=== PATIENT | female | born 1955 | race Caucasian/White ===

== ENCOUNTER 2023-09-18 16:24 | Outpatient (CLI) | payer OTHER, MEDICARE, SELFPAY ==
--- NOTE | 2023-09-18 16:45 | XR_ITS ---
WS: [id number] XR foot LT min 3V* [id number] REASON FOR EXAM: M79.672 - Pain in left foot FINDINGS: No acute fracture or focal bone lesion. No periosteal reaction. Mild narrowing of the joint space with mild subchondral sclerosis in the PIP and DIP joints of the to es. In the midfoot there is mild narrowing with moderate subchondral sclerosis in the talonavicular joint and the navicular cuneiform articulations. The remainder of the joint spaces in the midfoot are inta ct and relatively well preserved. The subtalar joint is intact with mild narrowing and subchondral sclerosis posteriorly. 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
--- NOTE | 2023-09-18 16:45 | XR_ITS ---
WS: [id number] XR ankle LT min 3V* [id number] REASON FOR EXAM: M25.572 - Pain in left ankle and joints of left foot FINDINGS: Previous internal fixation of medial and lateral malleolus with long long screws. No acute fracture identified. Mild narrowing of the medial clear space with mild subchondral sclerosis. Irregularity in the subarticular bone in the posterior tibiotalar joint which may be related to previ ous trauma. XR/XR ankle LT min 3V* [id number] IMPRESSION: Osteoarthritis of the left ankle as above.
--- NOTE | 2023-09-18 16:45 | XRR_ITS ---
PROCEDURE INFORMATION: Exam: XR Chest Exam date and time: 09/18/2023 4:49 PM Age: 67 years old Clinical indication: Cough; Additional info: R05.9 - cough, unspecified TECHNIQUE: Imaging protocol: Radiologic exam of the chest. Views: 2 views. COMPARISON: No relevant prior studies available. FINDINGS: Lungs: Small right-sided calcified granuloma. Mild interstitial prominence at the lung bases. Pleural spaces: Unremarkable. No pleural effusion. No pneumothorax. Heart/Mediastinum: Unremarkable. No cardiomegaly. Bones/joints: Unremarkable. XR/XR chest 2V* [id number] IMPRESSION: No acute cardiopulmonary disease.
== END 2023-09-18 16:25 | disposition home or self-care (01) ==
PROVIDERS: PCP Nurse Practitioner Family; Visit Provider Nurse Practitioner Family
DX: M19.072 Primary osteoarthritis, left ankle and foot (principal); R05.9 Cough, unspecified; M25.572 Pain in left ankle and joints of left foot; M79.672 Pain in left foot; E78.5 Hyperlipidemia, unspecified; M25.473 Effusion, unspecified ankle; R53.83 Other fatigue
CPT/HCPCS: 71046; 73610; 73630; 80053; 80061; 83880; 85025

== ENCOUNTER → 2023-10-10 10:17 | Outpatient (BNVA) | payer MEDICARE, SELFPAY | PROVIDERS: PCP Nurse Practitioner Family; Visit Provider Nurse Practitioner Family | DX: D72.829 Elevated white blood cell count, unspecified (principal) | CPT/HCPCS: 84443; 85025 ==

== ENCOUNTER → 2023-10-22 11:08 | Outpatient (BNVA) | payer MEDICARE, SELFPAY | PROVIDERS: PCP Nurse Practitioner Family; Visit Provider Podiatrist Foot & Ankle Surgery | DX: M79.671 Pain in right foot (principal); M79.672 Pain in left foot; G62.89 Other specified polyneuropathies | CPT/HCPCS: 99203 ==

== ENCOUNTER 2024-08-12 08:39 | Inpatient (IN) | payer MEDICARE, SELFPAY ==
[2024-08-12] VITALS (115 sets, daily range): BP systolic 120–200; BP diastolic 62–143; PULSE 81–98; RESP 12–28; TEMP 36.6–37.3; O2SAT 85–94; BMI 26.6; BMI 28.8
--- NOTE | 2024-08-12 08:41 | ECG_ITS ---
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
--- NOTE | 2024-08-12 08:49 | XRR_ITS ---
PROCEDURE INFORMATION: Exam: XR Left Hip Exam date and time: 08/12/2024 9:07 AM Age: 68 years old Clinical indication: Injury or trauma; Fall; Blunt trauma (contusions or hematomas); Left; Hip; HX of lung cancer TECHNIQUE: Imaging protocol: Radiologic exam of the left hip. Views: 2 or 3 views hip with pelvis when performed. COMPARISON: No relevant prior studies available. FINDINGS: Bones/joints: Displaced and angulated left femoral neck fracture. No additional fractures are seen. Soft tissues: Unremarkable. XR/XR hip LT 2-3V wo/w pel* [id number] IMPRESSION: Displaced and angulated left femoral neck fracture.
--- NOTE | 2024-08-12 08:50 | XRR_ITS ---
PROCEDURE INFORMATION: Exam: XR Chest Exam date and time: 08/12/2024 9:06 AM Age: 68 years old Clinical indication: Cough and dyspnea; Fall, HX of lung cancer; Additional info: Dyspnea/cough TECHNIQUE: Imaging protocol: Radiologic exam of the chest. Views: 1 view. COMPARISON: CR XR chest 2V* [id number] 09/18/2023 4:49 PM FINDINGS: Lungs: No consolidation. Pleural spaces: No sizable pleural effusion or pneumothorax. Heart/Mediastinum: No cardiomegaly. Bones/joints: Unremarkable. XR/XR chest 1V portable [id number] IMPRESSION: No acute intrathoracic findings.
--- NOTE | 2024-08-12 08:51 | W.ED.EXTPRO ---
HPI - Extremity Problem General: Chief complaint: Extremity Injury, Lower Stated complaint: Fall, Hip Pain, Poss GI Bleed Time Seen by Provider: 08/12/24 08:41 History of Present Illness: 68-year-old female who presents to the emergency room with complaints of a fall. Patient reports she has had multiple falls recently. [place] She is complaining of left hip pain this morning after falling out of bed. She denies striking her head denies loss of consciousness she did require some oxygen to arrive but she had received some fentanyl and route. EMS also reported she had coffee-ground like emesis emesis bag in the room and does appear to be concerning for upper GI bleed. Patient denies any hematemesis denies any hematochezia or melena. She is not on any anticoagulants. No chest pain some mild generalized abdominal discomfort. Associated symptoms: Deny chest pain, fever(s) or rash Related Data Home Medications ?Medication ?Instructions ?Recorded ?Confirmed albuterol sulfate 90 mcg/actuation 2 puff inhalation Q6H PRN 09/10/23 10/22/23 aerosol inhaler bupropion HCl 150 mg 24 hr tablet, mg PO 09/10/23 10/22/23 extended release hydrochlorothiazide 25 mg tablet mg PO 09/10/23 10/22/23 losartan 50 mg tablet mg PO 09/10/23 10/22/23 montelukast 10 mg tablet mg PO 09/10/23 10/22/23 tiotropium 2.5 mcg-olodaterol 2.5 inhalation 09/10/23 10/22/23 mcg/actuation mist for inhalation (Stiolto Respimat) calcium carbonate 600 mg PO DAILY 09/18/23 10/22/23 methocarbamol 500 mg tablet 750 mg PO TID 09/18/23 10/22/23 multivitamin (Daily Multi-Vitamin 1 tab PO DAILY 09/18/23 10/22/23 tablet) turmeric root extract 500 mg 1,000 mg PO DAILY 09/18/23 10/22/23 capsule Previous Rx's ?Medication ?Instructions ?Recorded mupirocin calcium 2 % topical cream 1 applic topical DAILY #30 grams 09/26/23 meloxicam 7.5 mg tablet 7.5 mg PO DAILY #30 tabs 10/10/23 gabapentin 100 mg capsule 100 mg PO BEDTIME #30 caps 11/16/23 Allergies Allergy/AdvReac Type Severity Reaction Status Date / Time Iodinated Contrast Media Allergy ALGY-Hives Verified 10/22/23 11:10 amlodipine Allergy ALGY-Redness Uncoded 10/22/23 11:10 of Skin Review of Systems Const: Denies: fever(s) or chills Card: Denies: chest pain Resp: Denies: dyspnea GI: Denies: abdominal pain : Denies: dysuria, urinary frequency or urinary urgency Musc: Reports: joint pain; Denies: neck pain or back pain Skin/Breast: Denies: rash PFSH ED PFSH: Medical History Active asthma COPD (chronic obstructive pulmonary disease) Essential hypertension Vitreous floaters of both eyes Anxiety and depression Hx of cancer of lung Surgical History Hx of cataract extraction Social History Smoking and tobacco/nicotine status: never used tobacco/nicotine Physical Exam Const: GENERAL APPEARANCE: cooperative ORIENTATION/CONSCIOUSNESS: Yes awake, Yes oriented to person, Yes oriented to place and Yes oriented to time HENMT: COMMON NORMALS: normocephalic, atraumatic and hearing grossly normal bilaterally HEAD & SCALP: normocephalic and atraumatic Resp: COMMON NORMALS: normal respiratory effort, No retractions, No use of accessory muscles and clear to auscultation bilaterally AUSCULTATION: clear to auscultation bilaterally Cardio: COMMON NORMALS: regular rate, regular rhythm and No murmurs present (Cardio) RATE: regular rate RHYTHM: regular rhythm GI: COMMON NORMALS: Soft to palpation and No hepatosplenomegaly present AUSCULTATION: Yes normoactive bowel sounds PALPATION: Yes Soft to palpation, No Tenderness to palpation present (GI), No Guarding due to palpation present (GI) and Yes No hepatosplenomegaly present Neuro: SENSORIUM/ORIENTATION: Yes oriented to person, Yes oriented to place and Yes oriented to time Skin: COMMON NORMALS: no rashes or lesions noted GENERAL SKIN EXAM: no rashes or lesions noted Course Vital Signs: Vital signs: Vital Signs Temperature 98.4 F 08/12/24 10:36 Pulse Rate 86 08/12/24 10:45 Respiratory Rate 16 08/12/24 10:57 Blood Pressure 200/100 08/12/24 10:45 Pulse Oximetry 88 L 08/12/24 10:57 Oxygen Delivery Me thod Room Air 08/12/24 10:38 Oxygen Flow Rate 2 08/12/24 08:40 MDM - Extremity (Nontraumatic) Medical Decision Making Left femoral neck fracture. Additionally patient has upper GI bleed. She is mildly hyponatremic as well. Discussed with hospitalist general surgeon and orthopedist will admit. Orders written. Admitted initially to ICU. Lab Data 08/12/24 10:38 08/12/24 10:38 Radiology Impressions Hip/Pelvis X-Ray 08/12/24 08:49 IMPRESSION: Displaced and angulated left femoral neck fracture. Chest X-Ray 08/12/24 08:50 IMPRESSION: No acute intrathoracic findings. Femur X-Ray 08/12/24 09:25 IMPRESSION: Displaced and angulated left femoral neck fracture. Knee X-Ray 08/12/24 09:25 IMPRESSION: No acute fracture or dislocation. Head CT 08/12/24 09:32 IMPRESSION: 1. No acute intracranial hemorrhage or edema. 2. Moderate bifrontal lobe atrophy and small vessel disease throughout the white matter. More than expected for a patient of this age. Laboratory Results Urine Color Yellow (Yellow) 08/12/24 09:55 Urine Appearance Clear (CLEAR) 08/12/24 09:55 Urine pH 6.0 (5-7) 08/12/24 09:55 Ur Specific Kennedy 1.012 (1.005-1.030) 08/12/24 09:55 Urine Protein Negative (Negative) 08/12/24 09:55 Urine Glucose (UA) Negative (Normal) 08/12/24 09:55 Urine Ketones Trace (Negative) 08/12/24 09:55 Urine Blood Trace (Negative) A 08/12/24 09:55 Urine Nitrate Negative (Negative) 08/12/24 09:55 Urine Bilirubin Negative (Negative) 08/12/24 09:55 Urine Urobilinogen 0.2 mg/dL (Negative) 08/12/24 09:55 Ur Leukocyte Esterase Negative (Negative) 08/12/24 09:55 Urine RBC 3-5 /hpf (0-2) 08/12/24 09:55 Urine WBC 0-5 /hpf (0-5) 08/12/24 09:55 Ur Squamous Epith Cells 0-5 /hpf (0-5) 08/12/24 09:55 Amorphous Sediment Not Reportable 08/12/24 09:55 Urine Bacteria Trace /hpf (NONE) 08/12/24 09:55 Hyaline Casts 2.46 /lpf 08/12/24 09:55 Gastric Occult Blood Positive (Negative) H 08/12/24 08:50 All radiology interpretation(s) finalized by discharge Discharge Plan Discharge Patient Disposition: Admitted As Inpatient Admit Provider: Hayden Kraus Clinical Impression: GI bleeding, Fracture of femoral neck, left, COPD (chronic obstructive pulmonary disease), Peripheral neuropathy Condition: Stable Coding Level of Care Code ED Cr[employer]acker for Michael Wilson
[2024-08-12 09:10] LABS: Gastricult Occult Blood Positive (Negative)
--- NOTE | 2024-08-12 09:25 | XRR_ITS ---
PROCEDURE INFORMATION: Exam: XR Left Knee Exam date and time: 08/12/2024 9:31 AM Age: 68 years old Clinical indication: Injury or trauma; Fall; Blunt trauma; Knee; Left; HX of lung cancer TECHNIQUE: Imaging protocol: Radiologic exam of the left knee. Views: 3 views. COMPARISON: CR XR knee LT 3V* [id number] 08/23/2023 11:14 PM FINDINGS: Bones/joints: No acute fracture or dislocation. Mild tricompartmental joint space narrowing and spurring. Soft tissues: Normal. XR/XR knee LT 3V* [id number] IMPRESSION: No acute fracture or dislocation.
--- NOTE | 2024-08-12 09:25 | XRR_ITS ---
PROCEDURE INFORMATION: Exam: XR Left Femur Exam date and time: 08/12/2024 9:26 AM Age: 68 years old Clinical indication: Injury or trauma; Fall; Blunt trauma; Thigh or upper leg; Left; HX lung cancer TECHNIQUE: Imaging protocol: Radiologic exam of the left femur. Views: 2 views. COMPARISON: CR XR hip LT 2-3V wo/w pel* [id number] 08/12/2024 9:07 AM FINDINGS: Bones/joints: Displaced and angulated left femoral neck fracture. No additional fractures are seen. Soft tissues: Unremarkable. XR/XR femur LT min 2V* [id number] IMPRESSION: Displaced and angulated left femoral neck fracture.
[2024-08-12] MEDS: fentaNYL 50 mcg/mL INJ 2mL IVP (09:26)
--- NOTE | 2024-08-12 09:32 | CT_ITS ---
WS: [id number] CT HEAD NONCONTRAST HISTORY: frequent falls TECHNIQUE: Contiguous axial imaging performed through the brain. Bone and soft tissue windows. Sagittal and coronal reformats reviewed. All CT scans at [facility] use at least one of these dose optimization techniques: automated exposure control; mA and/or kV adjustment per patient size (includes targeted exams where dose is matched to clinical indication); or iterative reconstruction. DLP: 1096.58 mGy.cm COMPARISON: None available. No acute intracranial hemorrhage, midline shift or mass effect. Moderate atrophy, most significant is a bifrontal lobe atrophy. Low-attenuation in the periventricular white matter from moderate small vessel disease. No prior infarct. Ventricles: Normal size with no hydrocephalus. No inferior displacement of the cerebellar tonsils. Paranasal sinuses: As visualized are clear. Mastoid air cells: Well pneumatized. Calvarium and scalp: Skull is intact with no soft tissue edema or swelling. Moderate vascular calcifications in the intracranial carotid arteries. CT/CT head wo con* [id number] IMPRESSION: 1. No acute intracranial hemorrhage or edema. 2. Moderate bifrontal lobe atrophy and small vessel disease throughout the whi te matter. More than expected for a patient of this age.
[2024-08-12] MEDS: pantoprazole 40 mg SDV 80 MG IVP (10:01)
[2024-08-12 10:06] LABS: Bilirubin Urine Negative (Negative); Blood Urine Trace (Negative); Glucose Urine UA Negative (Normal); Ketones Urine Trace (Negative); Leukocyte Esterase Urine Negative (Negative); Nitrate Urine Negative (Negative); Protein Urine Negative (Negative); Specific Gravity, Urine 1.012 (1.005-1.030); Urine Appearance Clear (CLEAR); Urine Color Yellow (Yellow); Urobilinogen Urine 0.2 mg/dL (Negative)
[2024-08-12 10:11] LABS: Add Urine Microscopic? YES; Bacteria Urine Trace /hpf; Hyaline Casts Urine 2.46 /lpf; Squamous Epithelial Cell Urine 0-5 /hpf (0-5); WBC Urine 0-5 /hpf (0-5)
[2024-08-12] MEDS: ondansetron 2 mg/ML SDV 2 mL 4 MG IVP (10:53)
[2024-08-12] MEDS: sodium chloride 0.9% 1,000 ML 100 ML IV ×2 (10:53→21:18)
[2024-08-12] MEDS: morphine 4 mg/mL SDV 1 mL 2 MG IVP ×4 (10:57→19:04)
[2024-08-12 10:58] LABS: Basophils % 0.1 %; Eosinophils % 0.1 %; Hematocrit 45.9 % (36-47); Lymphocytes # 1.1 10^3/uL (0.8-4.8); Lymphocytes % 7.4 %; Mean Corpuscular Hemoglobin 32.7 pg (27-33); Mean Corpuscular Volume 96.2 fl (85-98); Mean Platelet Volume 8.4 fL (7.4-10.4); Monocytes # 0.5 10^3/uL (0.2-0.9); Monocytes % 3.2 %; Neutrophils # 12.84 10^3/uL (1.8-7.7); Neutrophils % 88.6 %; Nucleated Red Blood Cells % 0 %; Platelet Count 338 10^3/cmm (157-399); Red Blood Count 4.77 10^6/uL (3.85-5.65); Red Cell Distribution Width 11.9 % (12.1-15.1); White Blood Count 14.48 10^3/uL (3.29-11.43)
--- NOTE | 2024-08-12 10:58 | ECG_ITS ---
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
[2024-08-12 11:09] LABS: Alanine Aminotransferase 21 U/L (0-33); Albumin Level 4.4 g/dL (3.5-5.2); Alkaline Phosphatase 122 U/L (35-105); Aspartate Amino Transferase 21 U/L (0-32); Blood Urea Nitrogen 7 mg/dL (8-23); Calcium 8.9 mg/dL (8.5-10.5); Carbon Dioxide 19 mmol/L (22-29); Chloride 87 mmol/L (98-107); Creatinine Clr Calc Pharmacy 82.0972; Glomerular Filtration Rate 123.4 mL/min (90-130); Glucose 109 mg/dL (65-115); Osmolality Calculated 255 mOsm/kg (285-295); Sodium 123 mmol/L (136-145); Total Bilirubin 0.3 mg/dL (0.15-1.2); Total Protein 7.4 g/dL (6.6-8.7)
[2024-08-12 11:10] LABS: Anion Gap 21.6 (5-19); Potassium 4.6 mmol/L (3.5-5.1)
[2024-08-12 11:11] LABS: Troponin(5th) Baseline < 6 ng/L (0-10)
--- NOTE | 2024-08-12 11:25 | PC.NURSE ---
Patient arrived to ICU at 1030. Patient alert and orientated. Patient did have one episode of emesis with coffee grounds, Dr. Barton notified, plans for EGD tomorrow. PRN zofran and morphine given, see MAR.
--- NOTE | 2024-08-12 11:33 | PM.CONSULT ---
Providers/Reason For Consult Consulting Physician/Specialty*: General Surgery Reason for Consult*: Upper GI bleeding Attending Physician: Hayden Kraus Primary Care Provider: NARGIS Almaguer History of Present Illness History of Present Illness Shelly Mcdonald is a 68 year old female who presents to the hospital after a mechanical fall and has a left femoral neck fracture. Unfortunately in the trip to the hospital she also had an episode of coffee-ground emesis positive for Hemoccult. Since then she has had 1 more episode of coffee-ground emesis. She denies significant abdominal pain, has history of previous GI bleeding in the past. No melanotic stools reported Review of Systems General: Reports: 10 or more systems reviewed and unremarkable except in HPI and below Medications/Allergies Home Medications ?Medication ?Instructions ?Recorded ?Confirmed ?Last Taken ?Type albuterol sulfate 90 mcg/actuation 2 puff inhalation Q6H PRN 09/10/23 10/22/23 Unknown History aerosol inhaler bupropion HCl 150 mg 24 hr tablet, mg PO 09/10/23 10/22/23 Unknown History extended release hydrochlorothiazide 25 mg tablet mg PO 09/10/23 10/22/23 Unknown History losartan 50 mg tablet mg PO 09/10/23 10/22/23 Unknown History montelukast 10 mg tablet mg PO 09/10/23 10/22/23 Unknown History tiotropium 2.5 mcg-olodaterol 2.5 inhalation 09/10/23 10/22/23 Unknown History mcg/actuation mist for inhalation (Stiolto Respimat) calcium carbonate 600 mg PO DAILY 09/18/23 10/22/23 Unknown History methocarbamol 500 mg tablet 750 mg PO TID 09/18/23 10/22/23 Unknown History multivitamin (Daily Multi-Vitamin 1 tab PO DAILY 09/18/23 10/22/23 Unknown History tablet) turmeric root extract 500 mg 1,000 mg PO DAILY 09/18/23 10/22/23 Unknown History capsule mupirocin calcium 2 % topical cream 1 applic topical DAILY #30 grams 09/26/23 10/22/23 Unknown Rx meloxicam 7.5 mg tablet 7.5 mg PO DAILY #30 tabs 10/10/23 10/22/23 Unknown Rx gabapentin 100 mg capsule 100 mg PO BEDTIME #30 caps 11/16/23 11/16/23 Unknown Rx Allergies Allergy/AdvReac Type Severity Reaction Status Date / Time Iodinated Contrast Media Allergy ALGY-Hives Verified 10/22/23 11:10 amlodipine Allergy ALGY-Redness Uncoded 10/22/23 11:10 of Skin Current Medications Generic Name Dose Route Start Last Admin Trade Name Freq PRN Reason Stop Dose Admin Sodium Chloride 1,000 mls @ 100 mls/hr 08/12/24 10:17 08/12/24 10:53 Sodium Chloride 0.9% IV 100 mls/hr .Q10H ANDREY Administration Morphine Sulfate 2 mg 08/12/24 10:17 08/12/24 10:57 Morphine 4 Mg/Ml Sdv 1 Ml IVP 2 mg Q4H PRN Administration SEVERE PAIN Ondansetron HCl 4 mg 08/12/24 10:17 08/12/24 10:53 Ondansetron 2 Mg/Ml Sdv 2 Ml IVP 4 mg Q6H PRN Administration NAUSEA AND VOMITING PFSH Acute PFSH: Medical History Active asthma COPD (chronic obstructive pulmonary disease) Essential hypertension Vitreous floaters of both eyes Anxiety and depression Hx of cancer of lung Surgical History Hx of cataract extraction Social History Smoking and tobacco/nicotine status: never used tobacco/nicotine Vitals/I&O/Wt Last Vital Signs Temp 98.4 F 08/12/24 10:36 Pulse 86 08/12/24 10:45 Resp 16 08/12/24 10:57 BP 200/100 08/12/24 10:45 Pulse Ox 88 L 08/12/24 10:57 O2 Del Method Room Air 08/12/24 10:38 O2 Flow Rate 2 08/12/24 08:40 Weight last 48 hrs Weight 195 lb 7 oz Weight 180 lb Physical Exam Narrative: Abdomen is soft nontender nondistended. Urinary Catheter Management: Huertas: Cath Placed During This Visit: yes Urinary Catheter Date of Insertion: 08/12/24 Urinary Catheter Time of Insertion: 10:00 Data 08/12/24 10:38 08/12/24 10:38 A&P Assessment and plan (1) Elevated WBC count: (2) GI bleeding: Plan I had extensive discussion with the patient regarding the findings. Her hemoglobin appears to be stable at 15.6. This most likely is of very slow upper GI bleeding, since patient is going to need orthopedic fixation of her hip and probably will receive anticoagulation after orthopedic surgery I think it will be appropriate to proceed with upper endoscopy with possible bleeding control to prevent further bleeding if the patient is anticoagulated. I discussed the risk and benefits of the procedure including the risks of bleeding, perforation, need for surgical intervention, need for additional procedures, need for transfer to higher level of care. Patient shows understanding and agrees. We will proceed tomorrow after initial resuscitation. Will recommend that the patient is on a twice a day PPI and will continue to monitor the hemoglobin level. PDMP PDMP Reviewed: Not Reviewed Coding Level of Care Code Acute Code for Chg Fwd Diagnoses Lymphocytosis D72.820 Leukocytosis type: lymphocytosis GI bleeding K92.2
[2024-08-12 12:46] LABS: Troponin 5 2HR < 6.0 ng/L (0-10); Troponin 5 2HR Delta 0 ABS# (0-10)
--- NOTE | 2024-08-12 12:53 | PM.HP ---
Providers/Chief Complaint Admitting Physician: Hayden Kraus Primary Care Provider: NARGIS Almaguer Chief Complaint: Fall, Hip Pain, Poss GI Bleed History of Present Illness Shelly Mcdonald is a 68 year old female with a history of COPD, prior lung cancer, chronic back pain, and left leg orthopedic hardware (pins and screws in the left ankle) presents with recurrent falls since moving to their current residence in August or September of last year (approximately one year ago). The patient reports up to 11 falls, often attributing them to tripping, possibly due to not lifting their feet enough and the left leg being shorter and weaker. The patient denies lightheadedness or presyncopal symptoms before falls. About a month ago, the patient sustained significant right-sided rib bruising from a fall, which remains sore. The patient also reports chronic back pain, which has worsened recently. There is a history of left leg weakness and attempts to use insoles for leg length discrepancy. The patient manages their own medications and has recently stopped meloxicam due to lack of efficacy and prior GI issues. The patient has a history of diarrhea a few months ago, leading to medication adjustments. The patient denies numbness or loss of sensation in the hands or feet but notes sometimes feeling dehydrated upon waking. The patient does not have diabetes. The patient lives alone with two dogs, has no family nearby, and ambulates independently at home, though owns but does not use a cane. The patient smokes half a pack per day, drinks beer occasionally (three to six cans about once a week or less), and reports past marijuana use. There is a family history of heart problems (father, mother, and brother). The patient is currently hospitalized after a recent fall resulting in a hip fracture, with ongoing pain. There is concern for GI bleeding (vomiting with blood detected), and the patient is awaiting endoscopy prior to planned hip surgery. The patient is alert and making their own decisions, with cousin Aaron Granda listed as a potential surrogate decision-maker if needed [phone]. The patient is open to CPR and resuscitation if required. Review of Systems Const: Denies: fever(s), chills, body aches or malaise ENMT: Denies: throat pain Card: Denies: chest pain, edema, pre-syncope or dyspnea on exertion Resp: Denies: dyspnea, productive cough, change in phlegm color or hemoptysis GI: Reports: vomiting; Denies: abdominal pain, diarrhea, constipation, hematochezia or melena : Denies: flank pain, urinary frequency or hematuria Musc: Reports: back pain (chronic) and extremity pain; Denies: joint swelling or joint redness Skin/Breast: Denies: rash or new lesions Neuro: Denies: headache(s) or confusion Medications/Allergies Home Medications ?Medication ?Instructions ?Recorded ?Confirmed ?Last Taken ?Type albuterol sulfate 90 mcg/actuation 2 puff inhalation Q6H PRN 09/10/23 10/22/23 Unknown History aerosol inhaler bupropion HCl 150 mg 24 hr tablet, mg PO 09/10/23 10/22/23 Unknown History extended release hydrochlorothiazide 25 mg tablet mg PO 09/10/23 10/22/23 Unknown History losartan 50 mg tablet mg PO 09/10/23 10/22/23 Unknown History montelukast 10 mg tablet mg PO 09/10/23 10/22/23 Unknown History tiotropium 2.5 mcg-olodaterol 2.5 inhalation 09/10/23 10/22/23 Unknown History mcg/actuation mist for inhalation (Stiolto Respimat) calcium carbonate 600 mg PO DAILY 09/18/23 10/22/23 Unknown History methocarbamol 500 mg tablet 750 mg PO TID 09/18/23 10/22/23 Unknown History multivitamin (Daily Multi-Vitamin 1 tab PO DAILY 09/18/23 10/22/23 Unknown History tablet) turmeric root extract 500 mg 1,000 mg PO DAILY 09/18/23 10/22/23 Unknown History capsule mupirocin calcium 2 % topical cream 1 applic topical DAILY #30 grams 09/26/23 10/22/23 Unknown Rx meloxicam 7.5 mg tablet 7.5 mg PO DAILY #30 tabs 10/10/23 10/22/23 Unknown Rx gabapentin 100 mg capsule 100 mg PO BEDTIME #30 caps 11/16/23 11/16/23 Unknown Rx Allergies Allergy/AdvReac Type Severity Reaction Status Date / Time Iodinated Contrast Media Allergy ALGY-Hives Verified 10/22/23 11:10 amlodipine Allergy ALGY-Redness Uncoded 10/22/23 11:10 of Skin PFSH Acute PFSH: Medical History (Updated 08/12/24 @ 14:17 by Hayden Kraus MD) Active asthma COPD (chronic obstructive pulmonary disease) Essential hypertension Vitreous floaters of both eyes Anxiety and depression Hx of cancer of lung Surgical History Hx of cataract extraction Social History Smoking and tobacco/nicotine status: never used tobacco/nicotine Vitals/I&O/Wt Last Vital Signs Temp 98.4 F 08/12/24 10:36 Pulse 86 08/12/24 10:45 Resp 16 08/12/24 10:57 BP 200/100 08/12/24 10:45 Pulse Ox 88 L 08/12/24 10:57 O2 Del Method Room Air 08/12/24 10:38 O2 Flow Rate 2 08/12/24 08:40 Weight last 48 hrs Weight 88.649 kg Weight 81.647 kg Physical Exam Narrative: Sitting up in bed. Const: COMMON NORMALS: patient oriented x3 and alert GENERAL APPEARANCE: cooperative ORIENTATION/CONSCIOUSNESS: Yes awake HENMT: COMMON NORMALS: oropharynx normal Neck/C-Spine: COMMON NORMALS: no JVD Resp: COMMON NORMALS: normal respiratory effort and clear to auscultation bilaterally AUSCULTATION: clear to auscultation bilaterally Cardio: COMMON NORMALS: no JVD, regular rhythm, S1 normal heart sound present, S2 normal heart sound present and No murmurs present (Cardio) RHYTHM: regular rhythm HEART SOUNDS: S1 normal heart sound present and S2 normal heart sound present GI: COMMON NORMALS: Normal to inspection, nondistended, normoactive bowel sounds present, Soft to palpation and non-tender PALPATION: Yes Soft to palpation Extremity: COMMON NORMALS: no joint enlargement and no pedal edema NARRATIVE EXTREMITY EXAM: Pain in left hip Neuro: COMMON NORMALS: patient oriented x3 and moves all extremities SENSORIUM/ORIENTATION: Yes alert Skin: COMMON NORMALS: no rashes or lesions noted GENERAL SKIN EXAM: no rashes or lesions noted Urinary Catheter Management: Huertas: Cath Placed During This Visit: yes Urinary Catheter Date of Insertion: 08/12/24 Urinary Catheter Time of Insertion: 10:00 Data 08/12/24 10:38 08/12/24 10:38 A&P Assessment and plan (1) Fracture of femoral neck, left: Recent fall resulted in a hip fracture (possibly proximal femur, as clarified in conversation). The patient is experiencing significant pain and is interested in surgical repair. There is ongoing pain and limited mobility. Discussed with her risk of surgical intervention including due to suspected GI bleed, as well as underlying conditions including COPD. Plan for further reassessment of blood counts, assessment with endoscopy tomorrow morning. Reviewed vitals, CBC, UA, CMP, head CT, femur x-ray, hip x-ray, knee x-ray and chest x-ray, ER provider note, discussed with ER provider. - Plan for surgical repair of hip fracture pending clearance. - Pain management with morphine IV - Monitor for complications related to immobility (e.g., DVT prophylaxis with SCD, as blood thinners are currently withheld). - Huertas catheter. (2) GI bleeding: Recent vomiting with blood detected, raising concern for GI bleeding. History of NSAID use (meloxicam) which may have contributed. Awaiting endoscopy to evaluate for source of bleeding. Plan for the morning prescription surgery. Cleared for diet for now, n.p.o. after midnight. Blood thinners withheld due to bleeding risk. SCD for DVT prophylaxis. IV PPI every 12 hours. Reviewed CBC, gastric occult. Recheck hemoglobin. - Hold blood thinners until GI bleeding is evaluated. - Plan for upper endoscopy to assess for bleeding source prior to hip surgery. (3) Hypertensive urgency: Resume losartan. IVP labetalol as needed for hypertension blood pressure over 180s systolic, over 100 diastolic. Labetalol requested if not responding. Monitor for risk of hypotension. (4) Hyponatremia: Hyponatremia, 123, known duration, possibly chronic. On HCTZ. Reports intermittent thirst and drinking a lot of water. Possibly hypovolemic hyponatremia as does not appear fluid overloaded at this time. Drinks beer up to 6/week, possible component of beer potomania. Receiving normal saline. Will recheck sodium. Hold/discontinue HCTZ. Plan COPD : History of COPD, not currently requiring home oxygen. Uses nebulizer treatments as needed during exacerbations. No recent steroid use. No current respiratory distress reported. - Continue as-needed nebulizer treatments for COPD exacerbations. Chronic back pain : Chronic back pain, reportedly worsened recently. The patient has a history of using meloxicam and previously ibuprofen/Aleve, but has discontinued these due to GI side effects and lack of efficacy. Oxycodone was prescribed for rib pain after a prior fall, with some leftover at home. - Avoid NSAIDs due to GI bleeding risk. - Continue non-NSAID pain management as needed (e.g., morphine in hospital, oxycodone at home). Recurrent falls : The patient has experienced recurrent falls (up to 11) over the past year, often attributed to tripping, left leg weakness, and leg length discrepancy. No presyncopal symptoms reported. No new numbness or loss of sensation. The patient ambulates independently at home and owns a cane but does not use it regularly. Reports some chronic back pain. Will assess x-ray thoracic lumbar spine. May benefit from more detail assessment on follow-up with primary provider, consideration of neurogenic claudication. - physical therapy evaluation for gait and balance (not explicitly stated but implied by context of falls). - Check orthostatics once able - Encourage use of assistive device (cane) as needed (discussed in transcript). - Encouraged her to set up medic alert button as she lives alone and had trouble getting to the phone She names her cousin Aaron Granda as a surrogate decision-maker. She would be willing to set up DPOA paperwork to that effect. Requesting case management consultation. PDMP PDMP Reviewed: Not Reviewed Attestations Medical Necessity Statement*: Admission over 2 midnights anticipated for assessment and management after fall, left femoral neck fracture, upper GI bleeding, hyponatremia in a lady with underlying COPD, recurrent falls, depression, bradycardia's. and High MDM includes amount and/or complexity of data reviewed/ordered [ previous or external records, resulted lab(s)/test(s), ordered lab(s)/test(s) and other healthcare professional discussion] and described risk of complication, morbidity or mortality of management as documented Diagnoses Fracture of femoral neck, left S72.002A GI bleeding K92.2 Hypertensive urgency I16.0 Hyponatremia E87.1
[2024-08-12] MEDS: pantoprazole 40 mg SDV IVP (12:58)
[2024-08-12] MEDS: losartan 50 mg Tablet 25 MG PO (14:43)
[2024-08-12] MEDS: ipratropium-albuterol 3 mL Neb INHALATION ×2 (14:43→19:35)
--- NOTE | 2024-08-12 16:04 | PC.PHAR ---
Patient states she hasn't been taking her medication for a few days or so .Patient states that her doctor said she could go off of it for little while.
--- NOTE | 2024-08-12 16:34 | ECG_ITS ---
[facility] 2024[facility]12 Pat Name: Shelly Mcdonald Department: Room: [facility] Gender: Female [employer]: : 1955 Requested By: Christiano Espana Order Number: [id number] Reading MD: CRISPIN BOONE Measurements Intervals Meridian Rate: 87 P: 151 MN: 160 QRS: 50 QRSD: 96 T: 149 QT: 378 QTc: 457 Interpretive Statements ECTOPIC ATRIAL RHYTHM LOW QRS VOLTAGE IN EXTREMITY LEADS [QRS DEFLECTION < 0.5 mV IN LIMB LEADS] ABNORMAL QRS-T ANGLE [QRS-T AXIS DIFFERENCE > 60] Compared to ECG 08/12/2024 10:58:32 Ectopic atrial rhythm now present Low QRS voltage now present Sinus rhythm no longer present Electronically Signed On 08-20-2024 22:53:57 CDT by CRISPIN BOONE [email or web address]
[2024-08-12 16:35] LABS: Sodium 126 mmol/L (136-145)
[2024-08-12 16:36] LABS: Troponin 5 6HR 7.85 ng/L (0-10); Troponin 5 6HR Delta 1.85001 ng/L (0-12)
--- NOTE | 2024-08-12 17:29 | PM.CONSULT ---
Providers/Reason For Consult Consulting Physician/Specialty*: Doni Campos DO/orthopedic surgery Reason for Consult*: Left hip displaced femoral neck fracture Requesting Physician: Dr. Alexandra?emergency department Attending Physician: Hayden Kraus Primary Care Provider: NARGIS Almaguer History of Present Illness History of Present Illness Shelly Mcdonald is a 68 year old female who presents to the emergency department after sustaining a fall sustaining an injury to her left hip. Is unable to bear weight. Brought to the emergency department found to have a displaced left hip femoral neck fracture. Per patient emergency department record, Patient reports she has had multiple falls recently. [place] She is complaining of left hip pain this morning after falling out of bed. She denies striking her head denies loss of consciousness. According to emergency department she had coffee-ground like emesis emesis and does appear to be concerning for upper GI bleed as a result general surgery consulted. She is not on any anticoagulants. No chest pain some mild generalized abdominal discomfort. Denies any pain elsewhere after the injury. She states she does feel as though she is fallen frequently which she feels is some of it is she feels her left leg is shorter than her other side. She denies any presyncopal episodes prior to the fall. Denies any significant left hip pain prior to this injury. Patient lives at home by herself. Review of Systems General: Reports: 10 or more systems reviewed and unremarkable except in HPI and below Medications/Allergies Home Medications ?Medication ?Instructions ?Recorded ?Confirmed ?Last Taken ?Type bupropion HCl 150 mg 24 hr tablet, 150 mg PO QA 09/10/23 08/12/24 Unknown History extended release losartan 50 mg tablet 50 mg PO DAILY 09/10/23 08/12/24 Unknown History calcium carbonate 600 mg PO DAILY 09/18/23 08/12/24 Unknown History multivitamin (Daily Multi-Vitamin 1 tab PO DAILY 09/18/23 08/12/24 Unknown History tablet) turmeric root extract 500 mg 1,000 mg PO DAILY 09/18/23 08/12/24 Unknown History capsule albuterol sulfate 90 mcg/actuation See Rx Instructions .Route .COMPLEX 08/12/24 08/12/24 Unknown History aerosol inhaler citalopram 20 mg tablet 20 mg PO DAILY 08/12/24 08/12/24 Unknown History cyclobenzaprine 5 mg tablet 5 mg PO BEDTIME PRN Muscle Spasm 08/12/24 08/12/24 Unknown History apixaban 2.5 mg tablet (Eliquis) 2.5 mg PO BID 21 days #42 tabs 08/15/24 Unknown Rx hydrocodone 5 mg-acetaminophen 300 1 tab PO Q8H PRN pain #10 tabs 08/15/24 Unknown Rx mg tablet hydrocodone 5 mg-acetaminophen 325 1 tab PO Q6H PRN pain 5 days #20 08/15/24 Unknown Rx mg tablet tabs polyethylene glycol 3350 17 gram 17 g PO DAILY PRN constipation #30 08/15/24 Unknown Rx oral powder packet (Miralax) ea Allergies Allergy/AdvReac Type Severity Reaction Status Date / Time Iodinated Contrast Media Allergy ALGY-Hives Verified 10/22/23 11:10 amlodipine Allergy ALGY-Redness Uncoded 10/22/23 11:10 of Skin Current Medications Generic Name Dose Route Start Last Admin Trade Name Freq PRN Reason Stop Dose Admin Albuterol/Ipratropium 3 ml 08/12/24 14:00 08/12/24 14:43 Ipratropium-Albuterol 3 Ml Neb INHALATION 3 ml Q6H.RESP ANDREY Administration Sodium Chloride 1,000 mls @ 100 mls/hr 08/12/24 10:17 08/12/24 10:53 Sodium Chloride 0.9% IV 100 mls/hr .Q10H ANDREY Administration Losartan Potassium 25 mg 08/12/24 14:25 08/12/24 14:43 Losartan 50 Mg Tablet PO 25 mg DAILY ANDREY Administration Morphine Sulfate 2 mg 08/12/24 10:17 08/12/24 14:58 Morphine 4 Mg/Ml Sdv 1 Ml IVP 2 mg Q4H PRN Administration SEVERE PAIN Ondansetron HCl 4 mg 08/12/24 10:17 08/12/24 10:53 Ondansetron 2 Mg/Ml Sdv 2 Ml IVP 4 mg Q6H PRN Administration NAUSEA AND VOMITING Pantoprazole Sodium 40 mg 08/12/24 13:00 08/12/24 12:58 Pantoprazole 40 Mg Sdv IVP 40 mg Q12H ANDREY Administration PFSH Acute PFSH: Medical History (Updated 08/16/24 @ 00:00 by FLAVIO Wright) Active asthma COPD (chronic obstructive pulmonary disease) Essential hypertension Vitreous floaters of both eyes Anxiety and depression Hx of cancer of lung Surgical History Hx of cataract extraction Social History Smoking and tobacco/nicotine status: never used tobacco/nicotine Vitals/I&O/Wt Last Vital Signs Temp 98.4 F 08/12/24 10:36 Pulse 86 08/12/24 16:20 Resp 18 08/12/24 16:20 BP 128/65 08/12/24 16:20 Pulse Ox 90 08/12/24 16:20 O2 Del Method Nasal Cannula 08/12/24 14:43 O2 Flow Rate 2 08/12/24 14:43 08/12/24 08/12/24 08/12/24 06:59 14:59 22:59 Output Total 1500 / 1500 Balance -1500 / -1500 Weight last 48 hrs Weight 195 lb 7 oz Weight 180 lb Physical Exam Narrative: Patient is able to to follow commands and perform a standard?examination.?? Examination left lower extremity: Examination of the left lower extremity demonstrates patient has tenderness palpation of the left hip?as well as the left lower extremity is shortened and externally rotated pt has positive logroll on?examination unable to perform Stinchfield's secondary to pain and discomfort.? Patient is able to wiggle toes plantarflex and dorsiflex ankle sensations intact to light touch distally.? Distal pulses are palpable left lower extremity is warm and well-perfused.? Mild swelling noted about the left?hip.?? Secondary survey?examination unremarkable For any acute pathology to the bilateral upper extremities or contralateral lower extremity.? pt? has no tenderness to palpation to the bilateral upper extremities joints and no noticeable deformities.? ?gross motor and sensory is intact to the bilateral upper extremities.? Contralateral lower extremity has tenderness to the?hip?knee or ankle with no appreciable deformities and is able to plantarflex and dorsiflex ankle sensations intact to light touch distally as well as wiggle toes.? Distal pulses palpable.? Negative pelvic compression test, no tenderness palpation of the spine. Urinary Catheter Management: Huertas: Cath Placed During This Visit: yes Urinary Catheter Date of Insertion: 08/12/24 Urinary Catheter Time of Insertion: 10:00 Data 08/15/24 06:41 08/15/24 06:41 Other Labs: AM labs 08/12/2024?WBC 14.48 hemoglobin 14.60 ,sodium 126, creatinine 0.5 Xray Ortho: Radiologist's impression: Ordering Provider/Ordering MD: Christiano Alexandra DO Date of Service: 08/12/24 Procedure(s): XR hip LT 2-3V wo/w pel* [id number] Accession Number(s): [id number] Report Number: [id number] PROCEDURE INFORMATION: Exam: XR Left Hip Exam date and time: 08/12/2024 9:07 AM Age: 68 years old Clinical indication: Injury or trauma; Fall; Blunt trauma (contusions or hematomas); Left; Hip; HX of lung cancer TECHNIQUE: Imaging protocol: Radiologic exam of the left hip. Views: 2 or 3 views hip with pelvis when performed. COMPARISON: No relevant prior studies available. FINDINGS: Bones/joints: Displaced and angulated left femoral neck fracture. No additional fractures are seen. Soft tissues: Unremarkable. XR/XR hip LT 2-3V wo/w pel* [id number] IMPRESSION: Displaced and angulated left femoral neck fracture. Ordering Provider/Ordering MD: Christiano Alexandra DO Date of Service: 08/12/24 Procedure(s): XR femur LT min 2V* [id number] Accession Number(s): [id number] Report Number: [id number] PROCEDURE INFORMATION: Exam: XR Left Femur Exam date and time: 08/12/2024 9:26 AM Age: 68 years old Clinical indication: Injury or trauma; Fall; Blunt trauma; Thigh or upper leg; Left; HX lung cancer TECHNIQUE: Imaging protocol: Radiologic exam of the left femur. Views: 2 views. COMPARISON: CR XR hip LT 2-3V wo/w pel* [id number] 08/12/2024 9:07 AM FINDINGS: Bones/joints: Displaced and angulated left femoral neck fracture. No additional fractures are seen. Soft tissues: Unremarkable. XR/XR femur LT min 2V* [id number] IMPRESSION: Displaced and angulated left femoral neck fracture. Ordering Provider/Ordering MD: Christiano Alexandra DO Date of Service: 08/12/24 Procedure(s): XR knee LT 3V* [id number] Accession Number(s): [id number] Report Number: [id number] PROCEDURE INFORMATION: Exam: XR Left Knee Exam date and time: 08/12/2024 9:31 AM Age: 68 years old Clinical indication: Injury or trauma; Fall; Blunt trauma; Knee; Left; HX of lung cancer TECHNIQUE: Imaging protocol: Radiologic exam of the left knee. Views: 3 views. COMPARISON: CR XR knee LT 3V* [id number] 08/23/2023 11:14 PM FINDINGS: Bones/joints: No acute fracture or dislocation. Mild tricompartmental joint space narrowing and spurring. Soft tissues: Normal. XR/XR knee LT 3V* [id number] IMPRESSION: No acute fracture or dislocation. A&P Assessment and plan (1) Fracture of femoral neck, left: Plan Orthopedics consulted Hospitalist admitted patient is primary Imaging reviewed?displaced left?hip?femoral neck fracture Labs reviewed Pain control Nonweightbearing left lower extremity Patient has findings concerning for possible upper GI bleed on presentation General Surgery consulted planning on EGD tomorrow Plan?to for surgery for a left?hip?hemiarthroplasty suspect this will be on , 08/14/2024 this patient will still need workup for possible upper GI bleed tomorrow MDM: Patient 68-year-old female who sustained a ground-level fall and has a displaced left?hip?femoral neck fracture.? Patient this point in time states she has had multiple falls here recently. She also had concern for coffee ground emesis on initial presentation General Surgery consulted and planning on upper GI bleed workup tomorrow with possible EGD. Given the displaced fracture recommendation at this point in time would be for a left hip hemiarthroplasty versus total hip arthroplasty which we detailed out her treatment options I do feel as though surgical intervention in the way of some form or replacement would be best suited for this patient especially given this would help with pain control as well as earlier mobilization. Her bone quality looks good for possible press-fit fixation. We talked about her options here moving forward patient has had numerous falls which are of unknown origin she thinks some of this is just due to feeling like her left side feels shorter. Denies any significant left hip pain prior. This point in time I worry given her falls as well as she does appear older than stated age I feel as though a hip hemiarthroplasty would provide the most stability as I worry with these falls a total hip replacement will demand more adherence and close restrictions. At this point in time we talked about this in detail feel the best step for her would be a left hip hemiarthroplasty. We talked about her treatment options as far as nonoperative versus operative intervention.? We talked about the risks benefits complication alternatives with surgery.? Risk of surgery include but are not limited to make it better make it worse injury to nerves vessels or tendons blood clot, heart attack, stroke, on the table, infection,?hip?instability, periprosthetic fracture.? Understanding risk of surgery patient understands and agrees with current?plan.? All questions have been answered at this time.? Through shared decision-making elects to proceed with surgical intervention for a left?hip?hemiarthroplasty.? Plan?will be for a left?hip?hemiarthroplasty?once patient is optimized by internal medicine and cleared by general surgery. All questions answered at this time. PDMP PDMP Reviewed: Not Reviewed Coding Level of Care Code Acute Code for Chg Fwd Diagnoses Fracture of femoral neck, left S72.002A
[2024-08-12] MEDS: morphine 4 mg/mL SDV 1 mL IVP (22:02)
[2024-08-13] VITALS (56 sets, daily range): BP systolic 99–144; BP diastolic 55–93; PULSE 68–99; RESP 9–24; TEMP 35.8–37.2; O2SAT 81–96
[2024-08-13] MEDS: morphine 4 mg/mL SDV 1 mL IVP ×8 (00:55→22:33)
[2024-08-13] MEDS: pantoprazole 40 mg SDV IVP ×2 (00:56→12:23)
[2024-08-13 03:28] LABS: Basophils % 0.2 %; Eosinophils % 0.1 %; Hematocrit 42.1 % (36-47); Lymphocytes # 1.2 10^3/uL (0.8-4.8); Lymphocytes % 11.3 %; Mean Corpuscular Hemoglobin 32.1 pg (27-33); Mean Corpuscular Volume 97.2 fl (85-98); Mean Platelet Volume 8.3 fL (7.4-10.4); Monocytes # 0.9 10^3/uL (0.2-0.9); Monocytes % 8.2 %; Neutrophils # 8.53 10^3/uL (1.8-7.7); Neutrophils % 79.8 %; Nucleated Red Blood Cells % 0 %; Platelet Count 305 10^3/cmm (157-399); Red Blood Count 4.33 10^6/uL (3.85-5.65); Red Cell Distribution Width 12.2 % (12.1-15.1); White Blood Count 10.69 10^3/uL (3.29-11.43)
[2024-08-13 03:53] LABS: Alanine Aminotransferase 16 U/L (0-33); Albumin Level 3.6 g/dL (3.5-5.2); Alkaline Phosphatase 107 U/L (35-105); Anion Gap 14.5 (5-19); Aspartate Amino Transferase 13 U/L (0-32); Blood Urea Nitrogen 10 mg/dL (8-23); Calcium 8.7 mg/dL (8.5-10.5); Carbon Dioxide 24 mmol/L (22-29); Chloride 98 mmol/L (98-107); Creatinine Clr Calc Pharmacy 82.0972; Globulin 2.9 g/dL (1.3-4.6); Glomerular Filtration Rate 83.7 mL/min (90-130); Glucose 102 mg/dL (65-115); Osmolality Calculated 273 mOsm/kg (285-295); Potassium 4.5 mmol/L (3.5-5.1); Sodium 132 mmol/L (136-145); Total Bilirubin 0.6 mg/dL (0.15-1.2); Total Protein 6.5 g/dL (6.6-8.7)
[2024-08-13] MEDS: ketorolac 30 mg/mL INJ 15 MG IVP (04:27)
--- NOTE | 2024-08-13 05:49 | W.PM.OPSUD ---
Surgery/Procedure H&P Update DATE OF PROCEDURE: August 13, 2024 DATE H&P PERFORMED: 08/12/24 H&P UPDATE INFORMATION: I have reviewed H&P completed within last 30 days, I have examined patient prior to procedure, No changes to prior documentation, H&P is in [facility] EMR on date indicated and Risks and benefits of the procedure reviewed PLANNED PROCEDURE: Operation Date: 08/13/24 07:15 Proposed Procedures p EGD possible bleeding control(Not Applicable) - Aron Hong MD
--- NOTE | 2024-08-13 07:46 | PM.MISC ---
Miscellaneous Note Purpose of Documentation: Update on patient care Note: EGD done, no evidence of active upper GI bleeding. EGD was actually normal. Some biopsies of the antrum were taken. Patient can continue on once a day PPI for next 4 weeks I will see her in the clinic in 2 weeks. General surgery will sign off at this time.
--- NOTE | 2024-08-13 07:48 | ANES.PREANE2 ---
Pre-Anesthetic Assessment Height/Weight: Height 1.75 m Weight 88.541 kg Temp Pulse Resp BP Pulse Ox O2 Del Method O2 Flow Rate 97.6 F 78 18 131/74 94 Nasal Cannula 4 08/13/24 07:35 08/13/24 07:35 08/13/24 07:35 08/13/24 07:35 08/13/24 07:35 08/13/24 07:35 08/13/24 07:35 Preop Diagnosis: GI bleed Operation Date: 08/13/24 07:15 Proposed Procedures p EGD possible bleeding control(Not Applicable) - Aron Hong MD Was Beta Yaya taken within 24 hours: Yes Was Clonidine taken within 24 hours: N/A Social Tobacco Marijuana Exam alert, oriented x 3, clear to auscultation bilaterally and regular rate & rhythm Airway Submandibular: within normal limits Cervical ROM: within normal limits Mallampati: Class II Dentition: false History/ROS No significant history except as noted and No significant complaints Pulmonary Asthma, Chronic Obstructive Pulmonary Disease and Shortness of Breath CV/HEM Hypertension None reported Hepatic None reported GI None reported Metabolic None reported Musc/skel Osteoarthritis/DJD Neuropsych Anxiety and Depression Anesthetic Plan ASA status: 3 Anesthesia: Anesthesia Evaluation and MAC Risk of > 500 ml blood loss (7ml/kg in children): No Medications/Allergies Home Medications ?Medication ?Instructions ?Recorded ?Confirmed ?Last Taken ?Type bupropion HCl 150 mg 24 hr tablet, 150 mg PO QAM 09/10/23 08/12/24 Unknown History extended release losartan 50 mg tablet 50 mg PO DAILY 09/10/23 08/12/24 Unknown History calcium carbonate 600 mg PO DAILY 09/18/23 08/12/24 Unknown History multivitamin (Daily Multi-Vitamin 1 tab PO DAILY 09/18/23 08/12/24 Unknown History tablet) turmeric root extract 500 mg 1,000 mg PO DAILY 09/18/23 08/12/24 Unknown History capsule albuterol sulfate 90 mcg/actuation See Rx Instructions .Route .COMPLEX 08/12/24 08/12/24 Unknown History aerosol inhaler citalopram 20 mg tablet 20 mg PO DAILY 08/12/24 08/12/24 Unknown History cyclobenzaprine 5 mg tablet 5 mg PO BEDTIME PRN Muscle Spasm 08/12/24 08/12/24 Unknown History Allergies Allergy/AdvReac Type Severity Reaction Status Date / Time Iodinated Contrast Media Allergy ALGY-Hives Verified 10/22/23 11:10 amlodipine Allergy ALGY-Redness Uncoded 10/22/23 11:10 of Skin Current Medications Generic Name Dose Route Start Last Admin Trade Name Freq PRN Reason Stop Dose Admin Albuterol/Ipratropium 3 ml 08/12/24 14:00 08/13/24 03:09 Ipratropium-Albuterol 3 Ml Neb INHALATION Not Given Q6H.RESP ANDREY Sodium Chloride 1,000 mls @ 100 mls/hr 08/12/24 10:17 08/13/24 07:27 Sodium Chloride 0.9% IV Infused .Q10H ANDREY Infusion Losartan Potassium 25 mg 08/12/24 14:25 08/12/24 14:43 Losartan 50 Mg Tablet PO 25 mg DAILY ANDREY Administration Morphine Sulfate 4 mg 08/12/24 21:46 08/13/24 04:27 Morphine 4 Mg/Ml Sdv 1 Ml IVP 4 mg Q3H PRN Administration SEVERE PAIN Ondansetron HCl 4 mg 08/12/24 10:17 08/12/24 10:53 Ondansetron 2 Mg/Ml Sdv 2 Ml IVP 4 mg Q6H PRN Administration NAUSEA AND VOMITING Pantoprazole Sodium 40 mg 08/12/24 13:00 08/13/24 00:56 Pantoprazole 40 Mg Sdv IVP 40 mg Q12H ANDREY Administration PFSH Anesthesia Medical History (Updated 08/12/24 @ 14:17 by Hayden Kraus MD) Active asthma COPD (chronic obstructive pulmonary disease) Essential hypertension Vitreous floaters of both eyes Anxiety and depression Hx of cancer of lung Surgical History Hx of cataract extraction Social History Smoking and tobacco/nicotine status: never used tobacco/nicotine Data Anesthesia 08/13/24 03:15 08/13/24 03:15 Short CBC 08/12/24 08/12/24 08/13/24 Range/Units 10:38 15: 03:15 WBC 14.48 H 10.69 (3.29-11.43) 10^3/uL Hgb 15.60 14.60 13.90 (11.27-16.99) g/dL Hct 45.9 42.1 (36-47) % MCV 96.2 97.2 (85-98) fl Plt Count 338 305 (157-399) 10^3/cmm Neut % (Auto) 88.6 79.8 % Neut # (Auto) 12.84 H 8.53 H (1.8-7.7) 10^3/uL BMP 08/12/24 08/12/24 08/13/24 10:38 15:25 03:15 Sodium 123 L 126 L 132 L Potassium 4.6 4.5 Chloride 87 L 98 Carbon Dioxide 19 L 24 BUN 7 L 10 Creatinine 0.5 0.7 Glucose 109 102 Calcium 8.9 8.7 Cardiac Enzymes 08/12/24 08/12/24 08/12/24 Range/Units 10:38 12:08 16:11 Troponin T Baseline < 6 (0-10) ng/L Troponin T 120 Minute < 6.0 (0-10) ng/L Delta Troponin T 0 (0-10) ABS# Troponin T Hi Sens 6Hr 7.85 (0-10) ng/L Troponin T Hi Sens 6Hr Delta 1.30259 (0-12) ng/L Liver Function 08/12/24 08/13/24 Range/Units 10:38 03:15 Total Bilirubin 0.3 0.6 (0.15-1.2) mg/dL AST 21 13 (0-32) U/L ALT 21 16 (0-33) U/L Alkaline Phosphatase 122 H 107 H (35-105) U/L Albumin 4.4 3.6 (3.5-5.2) g/dL Urine 08/12/24 Range/Units 09:55 Urine Color Yellow (Yellow) Urine Appearance Clear (CLEAR) Urine pH 6.0 (5-7) Ur Specific [place] 1.012 (1.005-1.030) Urine Protein Negative (Negative) Urine Glucose (UA) Negative (Normal) Urine Ketones Trace (Negative) Urine Nitrate Negative (Negative) Urine Bilirubin Negative (Negative) Ur Leukocyte Esterase Negative (Negative) Urine RBC 3-5 (0-2) /hpf Urine WBC 0-5 (0-5) /hpf Blood Bank 08/12/24 10:38 Blood Type A Positive Rho(D) Type Rh positive Antibody Screen Negative
[2024-08-13] MEDS: sodium chloride 0.9% 1,000 ML 100 ML IV ×2 (07:59→15:29)
[2024-08-13] MEDS: losartan 50 mg Tablet 25 MG PO (08:01)
[2024-08-13] MEDS: nicotine 21 mg Patch 1 PATCH TRANSDERMA (08:27)
[2024-08-13] MEDS: ipratropium-albuterol 3 mL Neb INHALATION ×3 (08:42→20:37)
--- NOTE | 2024-08-13 09:26 | PC.NURSE ---
This nurse took report from SHANNAN Chaves in ICU at 924am.
--- NOTE | 2024-08-13 09:38 | PC.NURSE ---
Anastacio called report to [facility], patient taken upstairs at approx 0910.
--- NOTE | 2024-08-13 10:47 | P.PN_ITS ---
Vitals/I&O/Wt Last Vital Signs Temp 96.4 F L 08/13/24 08:00 Pulse 73 08/13/24 08:50 Resp 16 08/13/24 08:42 BP 144/93 08/13/24 08:01 Pulse Ox 93 08/13/24 08:42 O2 Del Method Nasal Cannula 08/13/24 08:42 O2 Flow Rate 3 08/13/24 10:06 08/12/24 08/13/24 08/13/24 22:59 06:59 14:59 Intake Total 1120 / 1120 1000 / 1000 Output Total 350 / 1850 1500 / 3350 Balance 770 / -730 -1500 / -2230 1000 / 1000 Weight last 48 hrs Weight 88.541 kg Weight 88.649 kg Weight 81.647 kg Physical Exam 2 Narrative: Sitting up in bed. Const: COMMON NORMALS: patient oriented x3 and alert GENERAL APPEARANCE: c ooperative ORIENTATION/CONSCIOUSNESS: Yes awake HENMT: COMMON NORMALS: oropharynx normal Neck/C-Spine: COMMON NORMALS: no JVD Resp: COMMON NORMALS: normal respiratory effort and clear to auscultation bilaterally AUSCULTATION: clear to auscultation bilaterally Cardio: COMMON NORMALS: no JVD, regular rhythm, S1 normal heart sound present, S2 normal heart sound present and No murmurs present (Cardio) RHYTHM: regular rhythm HEART SOUNDS: S1 normal heart sound present and S2 normal heart sound present GI: COMMON NORMALS: Normal to inspection, nondistended, normoactive bowel sounds present, Soft to palpation and non-tender PALPATION: Yes Soft to palpation Extremity: COMMON NORMALS: no joint enlargement and no pedal edema N ARRATIVE EXTREMITY EXAM: Pain in left hip Neuro: COMMON NORMALS: patient oriented x3 and moves all extremities S ENSORIUM/ORIENTATION: Yes alert Skin: COMMON NORMALS: no rashes or lesions noted GENERAL SKIN EXAM: no rashes or lesions noted Urinary Catheter Management: Huertas: Cath Placed During This Visit: yes Reason for Continuing Indwelling Catheter: Accurate Measurement of Urinary Output in Critically Ill Patients Urinary Catheter Date of Insertion: 08/12/24 Urinary Catheter Time of Insertion: 10:00 Data 08/13/24 03:15 08/13/24 03:15 A&P Assessment and plan (1) Fracture of femoral neck, left: Reviewed vitals, CBC, so far maintaining hemoglobin with mild decrease down to 13.9. Underwent EGD today which was unremarkable. Discussed with general surgeon and orthopedic surgeon. Reviewed surgery notes, procedure note. Plans to proceed with orthopedic surgery prescription with patient, plan for tomorrow morning. N.p.o. after midnight. Recent fall resulted in a hip fracture (possibly proximal femur, as clarified in conversation). The patient is experiencing significant pain and is interested in surgical repair. There is ongoing pain and limited mobility. Discussed with her risk of surgical intervention including due to suspected GI bleed, as well as underlying conditions including COPD. Plan for further reassessment of blood counts, assessment with endoscopy tomorrow morning. - Pain management with morphine IV - Monitor for complications related to immobility (e.g., DVT prophylaxis with SCD, as blood thinners are currently withheld). - Huertas catheter. (2) GI bleeding: Mild decrease in hemoglobin down to 13.9. No further vomiting. Underwent EGD, which was unremarkable. Reassess blood counts. Recent vomiting with blood detected, raising concern for GI bleeding on admission. History of NSAID use (meloxicam) which may have contributed. Cleared for diet for now, n.p.o. after midnight. Blood thinners withheld due to bleeding risk. SCD for DVT prophylaxis. For now continue IV PPI every 12 hours. Recheck hemoglobin. - Hold blood thinners until GI bleeding is evaluated. - Plan for upper endoscopy to assess for bleeding source prior to hip surgery. (3) Hypertensive urgency: Reviewed blood pressures, improved. Continue losartan. IVP labetalol as needed for hypertension blood pressure over 180s systolic, over 100 diastolic. Labetalol requested if not responding. Monitor for risk of hypotension. (4) Hyponatremia: Hyponatremia, improving, up to 132, hold further IV fluid. Known duration, possibly chronic. Hold and DC HCTZ. Reports intermittent thirst and drinking a lot of water. Possibly hypovolemic hyponatremia as does not appear fluid overloaded at this time. Drinks beer up to 6/week, possible component of beer potomania. Receiving normal saline. Will recheck sodium. Hold/discontinue HCTZ. Plan COPD : With mild exacerbation with cough, mild wheezing. Continue breathing treatments, scheduled and as needed. Add inhaled budesonide. Add Mucinex, flutter valve. Discussed with her. History of COPD, not currently requiring home oxygen. Uses nebulizer treatments as needed during exacerbations. No recent steroid use. No current respiratory distress reported. - Continue as-needed nebulizer treatments for COPD exacerbations. Chronic back pain : Chronic back pain, reportedly worsened recently. The patient has a history of using meloxicam and previously ibuprofen/Aleve, but has discontinued these due to GI side effects and lack of efficacy. Oxycodone was prescribed for rib pain after a prior fall, with some leftover at home. - Avoid NSAIDs due to GI bleeding risk. - Continue non-NSAID pain management as needed (e.g., morphine in hospital, oxycodone at home). Recurrent falls : The patient has experienced recurrent falls (up to 11) over the past year, often attributed to tripping, left leg weakness, and leg length discrepancy. No presyncopal symptoms reported. No new numbness or loss of sensation. The patient ambulates independently at home and owns a cane but does not use it regularly. Reports some chronic back pain. Will assess x-ray thoracic lumbar spine. May benefit from more detail assessment on follow-up with primary provider, consideration of neurogenic claudication. - physical therapy evaluation for gait and balance (not explicitly stated but implied by context of falls). - Check orthostatics once able - Encourage use of assistive device (cane) as needed (discussed in transcript). - Encouraged her to set up medic alert button as she lives alone and had trouble getting to the phone She names her cousin Aaron Granda as a surrogate decision-maker. She would be willing to set up DPOA paperwork to that effect. Requesting case management consultation. PDMP PDMP Reviewed: Not Reviewed Attestations 2 Medical Necessity Statement*: Continue admission for assessment and management of hip fracture, reassessment of blood counts after possible GI bleeding, treat COPD exacerbation, additional comorbidities as above. and High MDM includes amount and/or complexity of data reviewed/ordered [ previous or external records, resulted lab(s)/test(s), ordered lab(s)/test(s) and other healthcare professional discussion] and described risk of complication, morbidity or mortality of management as documented Diagnoses Fracture of femoral neck, left S72.002A GI bleeding K92.2 Hypertensive urgency I16.0 Hyponatremia E87.1
--- NOTE | 2024-08-13 11:39 | PC.NURSE ---
Upon pt transferring up to our floor from ICU, wallet with $66 in [place], cigarettes, [employer] agent and keys were locked up in [facility]. Pt requested to leave her watch on her wrist.
--- NOTE | 2024-08-13 13:09 | P.PN_ITS ---
Subjective 2 Subjective: Patient seen and examined today. She underwent EGD and at this point in time is cleared with no with no findings for upper GI bleed at this point in time she is cleared from general surgery standpoint to proceed with surgical intervention as well as internal medicine. Will plan on adding her onto the surgery schedule tomorrow morning to have this fixed with a left hip hemiarthroplasty she understands and agrees with current plan. Questions answered. Vitals/I&O/Wt Last Vital Signs Temp 99 F 08/13/24 11:51 Pulse 73 08/13/24 11:51 Resp 18 08/13/24 12:25 BP 128/70 08/13/24 11:51 Pulse Ox 96 08/13/24 12:25 O2 Del Method Nasal Cannula 08/13/24 11:51 O2 Flow Rate 3 08/13/24 10:06 08/12/24 08/13/24 08/13/24 22:59 06:59 14:59 Intake Total 1120 / 1120 1000 / 1000 Output Total 350 / 1850 1500 / 3350 Balance 770 / -730 -1500 / -2230 1000 / 1000 Weight last 48 hrs Weight 195 lb 3.2 oz Weight 195 lb 7 oz Weight 180 lb Physical Exam 2 Narrative: Patient is able to to follow commands and perform a standard?examination.?? Examination left lower extremity: Examination of the left lower extremity demonstrates patient has tenderness palpation of the left hip?as well as the left lower extremity is shortened and externally rotated pt has positive logroll on?examination unable to perform Stinchfield's secondary to pain and discomfort.? Patient is able to wiggle toes plantarflex and dorsiflex ankle sensations intact to light touch distally.? Distal pulses are palpable left lower extremity is warm and well-perfused.? Mild swelling noted about the left?hip.?? Urinary Catheter Management: Huertas: Cath Placed During This Visit: yes Reason for Continuing Indwelling Catheter: Accurate Measurement of Urinary Output in Critically Ill Patients Urinary Catheter Date of Insertion: 08/12/24 Urinary Catheter Time of Insertion: 10:00 Data 08/15/24 06:41 08/15/24 06:41 Other Labs: AM labs 08/13/2024 WBC 10.69 hemoglobin 13.90 creatinine 0.7 A&P Assessment and plan (1) Fracture of femoral neck, left: Plan Orthopedics consulted Hospitalist admitted patient is primary Imaging reviewed?displaced left?hip?femoral neck fracture Labs reviewed Pain control Nonweightbearing left lower extremity Upper GI scope today and cleared by general surgery?no concern for upper GI bleed Plan?to for surgery for a left?hip?hemiarthroplasty tomorrow Patient at this point in time is cleared from her upper GI bleed with general surgery and optimized to proceed with surgical intervention. We talked about trying to do this today unfortunately given the OR schedule this would be late into the evening and talked about this with the patient this point time we will plan on having her first case tomorrow. Patient understands agrees with current plan. All questions answered. Will add patient on first case tomorrow for left hip hemiarthroplasty all questions answered. PDMP PDMP Reviewed: Not Reviewed Attestations 2 Medical Necessity Statement*: Ongoing care left hip displaced femoral neck fracture requiring left hip hemiarthroplasty planning on surgery tomorrow, patient had workup for upper GI bleed today Coding Level of Care Code Acute Code for Chg Fwd Diagnoses Fracture of femoral neck, left S72.002A
[2024-08-13] MEDS: guaiFENesin 600 mg Tablet 1200 MG PO (17:08)
[2024-08-14] VITALS (23 sets, daily range): BP systolic 92–147; BP diastolic 49–98; PULSE 67–90; RESP 15–20; TEMP 36.1–37.2; O2SAT 84–96
[2024-08-14] MEDS: morphine 4 mg/mL SDV 1 mL IVP ×3 (01:42→21:08)
[2024-08-14] MEDS: pantoprazole 40 mg SDV IVP ×2 (01:42→12:09)
[2024-08-14] MEDS: ipratropium-albuterol 3 mL Neb INHALATION ×3 (03:10→19:36)
[2024-08-14 05:13] LABS: Basophils # 0.1 10^3/uL (0.0-0.1); Basophils % 0.5 %; Eosinophils # 0.3 10^3/uL (0.0-0.8); Eosinophils % 2.5 %; Hematocrit 41.6 % (36-47); Lymphocytes # 1.6 10^3/uL (0.8-4.8); Lymphocytes % 14.5 %; Mean Corpuscular HGB Conc 32.5 g/dL (30-55); Mean Corpuscular Hemoglobin 32.2 pg (27-33); Mean Corpuscular Volume 99.3 fl (85-98); Monocytes # 0.9 10^3/uL (0.2-0.9); Monocytes % 8.4 %; Neutrophils # 7.97 10^3/uL (1.8-7.7); Neutrophils % 73.9 %; Nucleated Red Blood Cells % 0 %; Platelet Count 295 10^3/cmm (157-399); Red Blood Count 4.19 10^6/uL (3.85-5.65); Red Cell Distribution Width 12.5 % (12.1-15.1); White Blood Count 10.78 10^3/uL (3.29-11.43)
[2024-08-14 05:38] LABS: Alanine Aminotransferase 13 U/L (0-33); Albumin Level 3.4 g/dL (3.5-5.2); Alkaline Phosphatase 98 U/L (35-105); Anion Gap 14.8 (5-19); Aspartate Amino Transferase 10 U/L (0-32); Blood Urea Nitrogen 8 mg/dL (8-23); Calcium 8.6 mg/dL (8.5-10.5); Carbon Dioxide 22 mmol/L (22-29); Chloride 101 mmol/L (98-107); Globulin 2.9 g/dL (1.3-4.6); Glucose 109 mg/dL (65-115); Osmolality Calculated 277 mOsm/kg (285-295); Potassium 3.8 mmol/L (3.5-5.1); Sodium 134 mmol/L (136-145); Total Bilirubin 0.3 mg/dL (0.15-1.2); Total Protein 6.3 g/dL (6.6-8.7)
[2024-08-14] MEDS: sodium chloride 0.9% 1,000 ML 30 ML IV (06:22)
[2024-08-14] MEDS: acetaminophen 1,000 MG/100 ML PIGGYBACK 400 MG IV ×3 (06:25→22:56)
[2024-08-14] MEDS: ketorolac 30 mg/mL INJ IVP (06:27)
--- NOTE | 2024-08-14 06:49 | ANES.PREANE2 ---
Pre-Anesthetic Assessment Height/Weight: Height 1.75 m Weight 88.451 kg Temp Pulse Resp BP Pulse Ox O2 Del Method O2 Flow Rate 97.8 F 84 17 115/64 93 Nasal Cannula 3 08/14/24 04:02 08/14/24 05:22 08/14/24 04:48 08/14/24 04:02 08/14/24 04:02 08/14/24 06:35 08/14/24 06:35 Preop Diagnosis: GI bleed Operation Date: 08/13/24 07:15 Proposed Procedures p EGD possible bleeding control(Not Applicable) - Aron Hong MD Operation Date: 08/14/24 07:00 Proposed Procedures p Hemiarthroplasty Hip(Left) - Doni Campos DO Familial anesthetic complications: none Was Beta Yaya taken within 24 hours: N/A Was Clonidine taken within 24 hours: N/A Last intake: Intake Last Liquid Date 08/13/24 Last Solid Date 08/13/24 Social No alcohol and No tobacco Exam alert, oriented x 3, clear to auscultation bilaterally and regular rate & rhythm Airway Mallampati: Class II Dentition: false Pulmonary Chronic Obstructive Pulmonary Disease hx lung ca CV/HEM Anemia (no GI bleed found on EGD) and Hypertension Metabolic Hyperlipidemia Anesthetic Plan ASA status: 3 Anesthesia: General Risk of > 500 ml blood loss (7ml/kg in children): No Medications/Allergies Home Medications ?Medication ?Instructions ?Recorded ?Confirmed ?Last Taken ?Type bupropion HCl 150 mg 24 hr tablet, 150 mg PO QAM 09/10/23 08/12/24 Unknown History extended release losartan 50 mg tablet 50 mg PO DAILY 09/10/23 08/12/24 Unknown History calcium carbonate 600 mg PO DAILY 09/18/23 08/12/24 Unknown History multivitamin (Daily Multi-Vitamin 1 tab PO DAILY 09/18/23 08/12/24 Unknown History tablet) turmeric root extract 500 mg 1,000 mg PO DAILY 09/18/23 08/12/24 Unknown History capsule albuterol sulfate 90 mcg/actuation See Rx Instructions .Route .COMPLEX 08/12/24 08/12/24 Unknown History aerosol inhaler citalopram 20 mg tablet 20 mg PO DAILY 08/12/24 08/12/24 Unknown History cyclobenzaprine 5 mg tablet 5 mg PO BEDTIME PRN Muscle Spasm 08/12/24 08/12/24 Unknown History Allergies Allergy/AdvReac Type Severity Reaction Status Date / Time Iodinated Contrast Media Allergy ALGY-Hives Verified 10/22/23 11:10 amlodipine Allergy ALGY-Redness Uncoded 10/22/23 11:10 of Skin Current Medications Generic Name Dose Route Start Last Admin Trade Name Freq PRN Reason Stop Dose Admin Albuterol/Ipratropium 3 ml 08/12/24 14:00 08/14/24 03:10 Ipratropium-Albuterol 3 Ml Neb INHALATION 3 ml On Hold: 08/14/24 06:09 Q6H.RESP ANDREY Administration Comment: Order held by Process Transfer Budesonide 0.5 mg 08/13/24 16:55 08/13/24 20:37 Budesonide 0.5 Mg/2 Ml Neb INHALATION Not Given On Hold: 08/14/24 06:09 BID.RESPIRATORY ANDREY Comment: Order held by Process Transfer Guaifenesin 1,200 mg 08/13/24 16:50 08/13/24 17:08 Guaifenesin 600 Mg Tablet PO 1,200 mg On Hold: 08/14/24 06:09 BID ANDREY Administration Comment: Order held by Process Transfer Sodium Chloride 1,000 mls @ 100 mls/hr 08/12/24 10:17 08/13/24 15:29 Sodium Chloride 0.9% IV 100 mls/hr On Hold: 08/13/24 16:59 .Q10H ANDREY Administration Sodium Chloride 1,000 mls @ 30 mls/hr 08/14/24 06:15 08/14/24 06:22 Sodium Chloride 0.9% IV 30 mls/hr .Q24H ANDREY Administration Losartan Potassium 25 mg 08/12/24 14:25 08/13/24 08:01 Losartan 50 Mg Tablet PO 25 mg On Hold: 08/14/24 06:09 DAILY ANDREY Administration Comment: Order held by Process Transfer Morphine Sulfate 4 mg 08/12/24 21:46 08/14/24 04:48 Morphine 4 Mg/Ml Sdv 1 Ml IVP 4 mg On Hold: 08/14/24 06:09 Q3H PRN Administration Comment: Order held by Process SEVERE PAIN Transfer Nicotine 1 patch 08/13/24 09:00 08/13/24 08:27 Nicotine 21 Mg Patch TRANSDERMA 1 patch On Hold: 08/14/24 06:09 DAILY ANDREY Administration Comment: Order held by Process Transfer Ondansetron HCl 4 mg 08/12/24 10:17 08/12/24 10:53 Ondansetron 2 Mg/Ml Sdv 2 Ml IVP 4 mg On Hold: 08/14/24 06:09 Q6H PRN Administration Comment: Order held by Process NAUSEA AND VOMITING Transfer Pantoprazole Sodium 40 mg 08/12/24 13:00 08/14/24 01:42 Pantoprazole 40 Mg Sdv IVP 40 mg On Hold: 08/14/24 06:09 Q12H ANDREY Administration Comment: Order held by Process Transfer [facility] Anesthesia Medical History (Updated 08/12/24 @ 14:17 by Hayden Kraus MD) Active asthma COPD (chronic obstructive pulmonary disease) Essential hypertension Vitreous floaters of both eyes Anxiety and depression Hx of cancer of lung Surgical History Hx of cataract extraction Social History Smoking and tobacco/nicotine status: never used tobacco/nicotine Data Anesthesia 08/14/24 04:31 08/14/24 04:31 Short CBC 08/12/24 08/12/24 08/13/24 Range/Units 10:38 15:25 03:15 WBC 14.48 H 10.69 (3.29-11.43) 10^3/uL Hgb 15.60 14.60 13.90 (11.27-16.99) g/dL Hct 45.9 42.1 (36-47) % MCV 96.2 97.2 (85-98) fl Plt Count 338 305 (157-399) 10^3/cmm Neut % (Auto) 88.6 79.8 % Neut # (Auto) 12.84 H 8.53 H (1.8-7.7) 10^3/uL 08/14/24 Range/Units 04:31 WBC 10.78 (3.29-11.43) 10^3/uL Hgb 13.50 (11.27-16.99) g/dL Hct 41.6 (36-47) % MCV 99.3 H (85-98) fl Plt Count 295 (157-399) 10^3/cmm Neut % (Auto) 73.9 % Neut # (Auto) 7.97 H (1.8-7.7) 10^3/uL BMP 08/12/24 08/12/24 08/13/24 10:38 15:25 03:15 Sodium 123 L 126 L 132 L Potassium 4.6 4.5 Chloride 87 L 98 Carbon Dioxide 19 L 24 BUN 7 L 10 Creatinine 0.5 0.7 Glucose 109 102 Calcium 8.9 8.7 08/14/24 04:31 Sodium 134 L Potassium 3.8 Chloride 101 Carbon Dioxide 22 BUN 8 Creatinine 0.6 Glucose 109 Calcium 8.6 Cardiac Enzymes 08/12/24 08/12/24 08/12/24 Range/Units 10:38 12:08 16:11 Troponin T Baseline < 6 (0-10) ng/L Troponin T 120 Minute < 6.0 (0-10) ng/L Delta Troponin T 0 (0-10) ABS# Troponin T Hi Sens 6Hr 7.85 (0-10) ng/L Troponin T Hi Sens 6Hr Delta 1.39516 (0-12) ng/L Liver Function 08/12/24 08/13/24 08/14/24 Range/Units 10:38 03:15 04:31 Total Bilirubin 0.3 0.6 0.3 (0.15-1.2) mg/dL AST 21 13 10 (0-32) U/L ALT 21 16 13 (0-33) U/L Alkaline Phosphatase 122 H 107 H 98 (35-105) U/L Albumin 4.4 3.6 3.4 L (3.5-5.2) g/dL Urine 08/12/24 Range/Units 09:55 Urine Color Yellow (Yellow) Urine Appearance Clear (CLEAR) Urine pH 6.0 (5-7) Ur Specific [place] 1.012 (1.005-1.030) Urine Protein Negative (Negative) Urine Glucose (UA) Negative (Normal) Urine Ketones Trace (Negative) Urine Nitrate Negative (Negative) Urine Bilirubin Negative (Negative) Ur Leukocyte Esterase Negative (Negative) Urine RBC 3-5 (0-2) /hpf Urine WBC 0-5 (0-5) /hpf Blood Bank 08/12/24 10:38 Blood Type A Positive Rho(D) Type Rh positive Antibody Screen Negative
--- NOTE | 2024-08-14 06:50 | W.PM.OPSUD ---
Surgery/Procedure H&P Update DATE OF PROCEDURE: August 14, 2024 DATE H&P PERFORMED: 08/12/24 H&P UPDATE INFORMATION: I have reviewed H&P completed within last 30 days, I have examined patient prior to procedure and No changes to prior documentation PREOP DIAGNOSIS: Displaced left hip femoral neck fracture PRIMARY INDICATION FOR PROCEDURE: Displaced left hip femoral neck fracture PLANNED PROCEDURE: Operation Date: 08/13/24 07:15 Proposed Procedures p EGD possible bleeding control(Not Applicable) - Aron Hong MD Operation Date: 08/14/24 07:00 Proposed Procedures p Hemiarthroplasty Hip(Left) - Doni Capmos DO
[2024-08-14] MEDS: ceFAZolin 2,000 mg SDV 2000 MG IVP (07:01)
[2024-08-14] MEDS: tranexamic acid 1,000 mg/10mL SDV 1000 MG (07:10)
[2024-08-14] MEDS: VANCOMYCIN ADD-Vantage 1,000 MG VIAL 1000 MG INTRA-ARTI (07:57)
--- NOTE | 2024-08-14 08:42 | P.BOP_ITS ---
Date of Procedure: 08/14/2024 Surgeon: Doni Campos DO Slab Depiler Operator(s): Ronak Campos PA-C Procedure(s) performed: Left hip hemiarthroplasty Findings of the procedure(s): Patient underwent procedure as planned without issues or complications. Estimated blood loss: 75 mL Specimen(s) removed: Femoral head removed Post-operative diagnosis: Left hip displaced femoral neck fracture
--- NOTE | 2024-08-14 08:43 | P.OP_ITS ---
Operative Report Date of procedure: August 14, 2024 Surgeon: Doni Campos DO Mail Delivery Supervisor: Ronak Campos PA-C: PA was necessary for assistance in this case with leg positioning, hip reductions retraction and protection of neurovascular structures as well as assistance in implantation wound closure and dressing application. Procedure: Preoperative diagnosis: Left hip displaced femoral neck fracture post-op?diagnosis: Same Procedure done: Left?hip?hemiarthroplasty Implants: Daniel insignia high offset stem size 5 Bipolar head 45 mm Femoral head +0 mm offset Surgeon: Doni Campos DO Estimated blood loss: 75 mL IV fluids: 900 mL Urine output: 400 mL Complications: None Findings: See?operative report Condition: stable Disposition: floor Brief History: Patient was seen in the emergency department and subsequently admitted after fall.? Patient sustained a Left displaced femoral neck fracture.? Patient was subsequently admitted by the hospitalist team for medical management and preoperative optimization and the orthopedic surgery team was consulted for evaluation and treatment recommendations. Patient did have concern for possible upper GI bleed underwent general surgery workup and EGD cleared patient of no upper GI bleed and optimized for surgery for orthopedic intervention. At that point time discussed with patient? treatment?options.? We talked about nonoperative versus?operative intervention talked about the risk benefits complication alternatives to surgical nonsurgical treatment?options.? Risks of surgery were discussed and she understands and agrees to proceed with procedure.? At this point time would recommend a Left?hip?hemiarthroplasty.? This will offer patient pain control as well as early weightbearing.? Patient was medically?optimized by the primary team she was then taken to the OR.? Patient understands risk benefits complication alternatives with surgical nonsurgical treatment?options.? At this point time elects to proceed with Left?hip?hemiarthroplasty.? All questions answered.? Patient understands agrees with current plan.? All questions answered. Procedure: Patient seen evaluated the preoperative holding area.? Consent was reviewed and signed with patient.? ?Pt was seen evaluated by the anesthesia department.? Once cleared for surgery patient patient was taken back to the?operative suite.? P atient was then transported onto the OR table.? pt underwent anesthesia per the anesthesia department.? Once appropriately anesthetized patient was then positioned in lateral decubitus position with the Left?hip?up.? Patient was placed on a pegboard appropriately secured to the bed all bony prominences well- padded.? Next the Left lower extremity was then prepped and draped in sterile orthopedic fashion.? Final timeout performed.? Patient received appropriate preoperative antibiotics. A standard posterolateral approach was then made over the lateral aspect of the?hip.? Sharp scalpel incision was made through skin and subcutaneous tissue I then utilized a Gonzalez elevator to mobilize over the fascia.? The fascia was then split longitudinally with electrocautery.? Next a bursectomy was then pe rformed.? I then placed Hohmann underneath the abductors.? The?hip?was placed under tension with internal rotation.? I then utilizing electrocautery performed a full-thickness release of the short external rotators and capsule in 1 full thick sleeve for lateral repair.? This was then taken down to the lesser trochanter.? Immediately on capsulotomy hematoma was noticed and displaced femoral neck fracture appreciated.? I then placed a Hohmann above and below the neck.? I then utilized an oscillating saw to freshen the cut this was roughly a fingerbreadth above the lesser .? Once this was performed this access was removed with rongeur.? ?I then utilized a corkscrew to remove the head.? This was then subsequently sized and measured to be a 45 mm head size.? I then thoroughly irrigated the a cetabulum.? A Hohmann was placed anteriorly and thorough inspection of the acetabulum no significant arthritic changes were noted.? I then utilized a rongeur and Bovie to remove the pulvinar.? Once this was performed I then subsequently took my trial 45 mm head and trialed this which had excellent fit and appropriate suction fit noted.? This was then subsequently removed. Once this was performed I irrigated the socket and then turned my attention towards the femoral preparation.? I utilized Bovie and rongeur to remove the soft tissue off of the saddle.? Once this was done a box osteotome followed by a canal finder and? lateralizing rattail rasp was used to appropriately lateralized in the canal.? Patient had good cortices accommodating for press-fit fixation. Next I then subsequently broached to a size 5 Daniel high offset insignia stem which had appropriate fixation.? I was able to trial with this and this appeared to be appropriate length. Once this was done we then subsequently dislocated the hip and then once again checked the rotational stability of the stem. The insignia stem had excellent fixation and as a result decision was made to use this as final stem. The femoral stem size 5 was then impacted in place with appropriate anteversion. I then trialed a standard size head which at that point there was which had excellent leg lengths as well as appropriate shuck, and excellent stability in all planes of motion with no evidence of instability.? At this point this was determined to being my final femoral head size.? This was subsequently dislocated the trial head was then removed the final implant of bipolar head 45 mm with a +0 mm offset was then?opened.? The trunnion was then cleaned and dried and this was impacted in place with excellent fixation.? I then reduced the?hip?this had excellent stability and appropriate leg lengths.? The wound bed was then thoroughly irrigated.? I then utilizing #5 Ethibond suture performed my repair of the capsule and short external rotators through bone tunnels.? ?Wound bed was then thoroughly irrigated,1 gram vanco powder placed in wound bed.? IT band was closed with strata fix suture and the deep subcutaneous and subcutaneous layers were closed with 0 strata fix and 2-0 strata fix.? Skin was then closed reapproximated with tony.? Silverlon dressing applied.? Patient placed in abduction pillow posterior?hip?precautions.? pt? was awakened from anesthesia and taken to PACU in stable condition Disposition: Patient taken to PACU in stable condition will receive appropriate discharge directions as well as pain medication DVT prophylaxis postoperatively.? Patient? will return to the floor postoperatively.? Patient will be weightbearing as tolerated to the Left lower extremity.? Posterior?hip?precautions. Abduction pillow in place.? DVT prophylaxis, pain medication, postoperative antibiotics and TXA.? Patient will work with PT/OT and discharge services for discharge planning.? Patient understands agrees with current plan.? All questions answered.? ?patient will? see me in the office in 2 weeks.
--- NOTE | 2024-08-14 08:48 | XR_ITS ---
WS: [id number] Left hip, 2 views, AP pelvis, 08/14/2024 Clinical Data: post op left hip rachel Comparison: Left thigh and femur, 08/12/2024 Findings: A left femoral head arthroplasty has been performed. The acetabular cup is in good position. The proximal intramedullary nghia is in good position. There are surgical tony in the lateral left subcutaneous tissue. The right hip is normal. There is a uterine fibroid in the right side of the true pelvis. XR/XR hip LT 2-3V wo/w pel* [id number] Impression: Left hip arthroplasty.
--- NOTE | 2024-08-14 09:10 | PC.NURSE ---
This nurse took report from SHANNAN Dahl in PACU at 910am. Awaiting xrays before transferring back to med surg floor.
--- NOTE | 2024-08-14 09:30 | ANE.PACU2 ---
Inpatient post-anesthesia follow up: Airway intact: Yes Vital signs: Temperature 97.7 F Pulse Rate 81 Respiratory Rate 16 Blood Pressure 129/71 Pulse Oximetry 92 Oxygen Delivery Me thod Nasal Cannula Oxygen Flow Rate 2 Fraction of Inspir ed Oxygen Hydration adequate: Yes Nausea and vomiting: No Pain level: 1 Mental status: Baseline
[2024-08-14] MEDS: sennosides-docusate Tablet 2 TAB PO ×2 (10:39→17:24)
[2024-08-14] MEDS: mupirocin oint 22 gm 1 APPLIC NASAL ×2 (10:39→17:24)
[2024-08-14] MEDS: calcium carb-vit d 600mg/400unit 1 Tablet 1 EACH PO ×2 (10:40→17:24)
[2024-08-14] MEDS: multivitamin therapeutic Tablet 1 TAB PO (10:40)
[2024-08-14] MEDS: chlorhexidine gluconate 0.12% Btl 473 mL 30 ML MUCOUS MEM ×4 (10:40→21:08)
[2024-08-14] MEDS: sodium chloride 0.9% 1,000 ML 100 ML IV (10:41)
[2024-08-14] MEDS: nicotine 21 mg Patch 1 PATCH TRANSDERMA (12:09)
[2024-08-14] MEDS: ceFAZolin 2,000 MG in sodium chloride 0.9% (plus) 50 ML 100 MG IV ×2 (14:46→22:56)
[2024-08-14] MEDS: tranexamic acid 1,000 MG/100 ML PREMIX 600 MG IV (14:48)
--- NOTE | 2024-08-14 14:51 | PM.PN ---
Subjective Subjective: Underwent hip surgery. Doing well postoperatively, not bothered by pain. No trouble breathing, no nausea. Awaiting PT evaluation, on discussion with her agrees she may consider [facility] rehabilitation if needed. Vitals/I&O/Wt Last Vital Signs Temp 97.7 F 08/14/24 09:45 Pulse 80 08/14/24 13:23 Resp 18 08/14/24 13:23 BP 133/70 08/14/24 11:45 Pulse Ox 95 08/14/24 13:23 O2 Del Method Nasal Cannula 08/14/24 13:23 O2 Flow Rate 4 08/14/24 13:23 08/13/24 08/14/24 08/14/24 22:59 06:59 14:59 Intake Total 1710 / 2710 100 / 2810 1326 / 1326 Output Total 1200 / 1200 800 / 2000 475 / 475 Balance 510 / 1510 -700 / 810 851 / 851 Weight last 48 hrs Weight 88.451 kg Weight 88.541 kg Physical Exam Const: COMMON NORMALS: patient oriented x3 and alert GENERAL APPEARANCE: cooperative ORIENTATION/CONSCIOUSNESS: Yes awake HENMT: COMMON NORMALS: oropharynx normal Neck/C-Spine: COMMON NORMALS: no JVD Resp: COMMON NORMALS: normal respiratory effort and clear to auscultation bilaterally AUSCULTATION: clear to auscultation bilaterally Cardio: COMMON NORMALS: no JVD, regular rhythm, S1 normal heart sound present, S2 normal heart sound present and No murmurs present (Cardio) RHYTHM: regular rhythm HEART SOUNDS: S1 normal heart sound present and S2 normal heart sound present GI: COMMON NORMALS: Normal to inspection, nondistended, normoactive bowel sounds present, Soft to palpation and non-tender PALPATION: Yes Soft to palpation Extremity: COMMON NORMALS: no joint enlargement and no pedal edema NARRATIVE EXTREMITY EXAM: Postoperative dressing left hip Neuro: COMMON NORMALS: patient oriented x3 and moves all extremities SENSORIUM/ORIENTATION: Yes alert Skin: COMMON NORMALS: no rashes or lesions noted GENERAL SKIN EXAM: no rashes or lesions noted Urinary Catheter Management: Huertas: Cath Placed During This Visit: yes Reason for Continuing Indwelling Catheter: Accurate Measurement of Urinary Output in Critically Ill Patients Urinary Catheter Date of Insertion: 08/12/24 Urinary Catheter Time of Insertion: 10:00 Data 08/14/24 04:31 08/14/24 04:31 A&P Assessment and plan (1) Fracture of femoral neck, left: Underwent left hip hemiarthroplasty, EBL 75 mL on review of surgery note. Reviewed vitals, CBC, CMP, maintain hemoglobin well currently. Repeat blood counts at risk of anemia. Lovenox VTE prophylaxis. Huertas catheter in place until mobilizing. Acetaminophen, morphine IV as needed for severe breakthrough pain. Discussed with nursing, director of casework. She has been reluctant to consider [facility] facility insisting on returning home. On discussion with her she agrees she may consider skilled nurse facility if needed depending on how she does with physical therapy and mobilization. (2) GI bleeding: Mild decrease in hemoglobin down to 13.9. No further vomiting. Underwent EGD, which was unremarkable. Reassess blood counts. Recent vomiting with blood detected, raising concern for GI bleeding on admission. History of NSAID use (meloxicam) which may have contributed. Cleared for diet for now, n.p.o. after midnight. Blood thinners withheld due to bleeding risk. SCD for DVT prophylaxis. For now continue IV PPI every 12 hours. Recheck hemoglobin. - Hold blood thinners until GI bleeding is evaluated. - Plan for upper endoscopy to assess for bleeding source prior to hip surgery. (3) Hypertensive urgency: Blood pressures have improved. Continue losartan. IVP labetalol as needed for hypertension blood pressure over 180s systolic, over 100 diastolic. Labetalol requested if not responding. Monitor for risk of hypotension. (4) Hyponatremia: Resolving hyponatremia on review sodium up to 134. Decrease IV fluid rate, and discontinue resuming diet without issues. Monitor for risk of fluid overload. Reports intermittent thirst and drinking a lot of water. Possibly hypovolemic hyponatremia as does not appear fluid overloaded at this time. Drinks beer up to 6/week, possible component of beer potomania. Receiving normal saline. Will recheck sodium. Hold/discontinue HCTZ. Plan COPD : With mild exacerbation with cough, mild wheezing. Continue breathing treatments, scheduled and as needed. Add inhaled budesonide. Add Mucinex, flutter valve. Discussed with her. History of COPD, not currently requiring home oxygen. Uses nebulizer treatments as needed during exacerbations. No recent steroid use. No current respiratory distress reported. - Continue as-needed nebulizer treatments for COPD exacerbations. Chronic back pain : Chronic back pain, reportedly worsened recently. The patient has a history of using meloxicam and previously ibuprofen/Aleve, but has discontinued these due to GI side effects and lack of efficacy. Oxycodone was prescribed for rib pain after a prior fall, with some leftover at home. - Avoid NSAIDs due to GI bleeding risk. - Continue non-NSAID pain management as needed (e.g., morphine in hospital, oxycodone at home). Recurrent falls : Discussed with her may benefit from skilled rehabilitation. The patient has experienced recurrent falls (up to 11) over the past year, often attributed to tripping, left leg weakness, and leg length discrepancy. No presyncopal symptoms reported. No new numbness or loss of sensation. The patient ambulates independently at home and owns a cane but does not use it regularly. Reports some chronic back pain. Will assess x-ray thoracic lumbar spine. May benefit from more detail assessment on follow-up with primary provider, consideration of neurogenic claudication. - physical therapy evaluation for gait and balance (not explicitly stated but implied by context of falls). - Check orthostatics once able - Encourage use of assistive device (cane) as needed (discussed in transcript). - Encouraged her to set up medic alert button as she lives alone and had trouble getting to the phone She names her cousin Aaron Granda as a surrogate decision-maker. She would be willing to set up DPOA paperwork to that effect. Requesting case management consultation. PDMP PDMP Reviewed: Not Reviewed Attestations Medical Necessity Statement*: Continue admission for assessment management after left hip fracture, on presentation with Gastroccult positive emesis, possible GI bleed additional comorbidities. Post discharge planning and arrangements. and High MDM includes amount and/or complexity of data reviewed/ordered [ previous or external records, resulted lab(s)/test(s), ordered lab(s)/test(s) and other healthcare professional discussion] and described risk of complication, morbidity or mortality of management as documented Diagnoses Fracture of femoral neck, left S72.002A GI bleeding K92.2 Hypertensive urgency I16.0 Hyponatremia E87.1
[2024-08-14] MEDS: iron polysaccharide complex 150 mg Capsule PO (17:24)
[2024-08-14] MEDS: guaiFENesin 600 mg Tablet 1200 MG PO (17:24)
[2024-08-14] MEDS: ketorolac 30 mg/mL INJ 15 MG IVP ×2 (17:25→23:37)
[2024-08-14] MEDS: budesonide 0.5 mg/2 mL Neb INHALATION (19:37)
[2024-08-15] VITALS (9 sets, daily range): BP systolic 145–174; BP diastolic 62–81; PULSE 68–89; RESP 15–20; TEMP 36.8–37.1; O2SAT 86–99
[2024-08-15] MEDS: morphine 4 mg/mL SDV 1 mL IVP (02:00)
[2024-08-15] MEDS: ipratropium-albuterol 3 mL Neb INHALATION ×3 (02:02→14:25)
[2024-08-15] MEDS: acetaminophen 1,000 MG/100 ML PIGGYBACK 400 MG IV (06:35)
[2024-08-15] MEDS: ceFAZolin 2,000 MG in sodium chloride 0.9% (plus) 50 ML 100 MG IV (06:36)
[2024-08-15 06:47] LABS: Basophils % 0.1 %; Eosinophils # 0.1 10^3/uL (0.0-0.8); Eosinophils % 0.5 %; Lymphocytes # 1.2 10^3/uL (0.8-4.8); Lymphocytes % 12.4 %; Mean Corpuscular HGB Conc 32.4 g/dL (30-55); Mean Corpuscular Hemoglobin 32.3 pg (27-33); Mean Corpuscular Volume 99.5 fl (85-98); Mean Platelet Volume 8.8 fL (7.4-10.4); Monocytes # 0.7 10^3/uL (0.2-0.9); Monocytes % 7.5 %; Neutrophils # 7.41 10^3/uL (1.8-7.7); Nucleated Red Blood Cells % 0 %; Platelet Count 288 10^3/cmm (157-399); Red Blood Count 4.12 10^6/uL (3.85-5.65); Red Cell Distribution Width 12.4 % (12.1-15.1); White Blood Count 9.38 10^3/uL (3.29-11.43)
[2024-08-15 07:05] LABS: Alanine Aminotransferase 13 U/L (0-33); Albumin Level 3.5 g/dL (3.5-5.2); Alkaline Phosphatase 97 U/L (35-105); Anion Gap 14.6 (5-19); Aspartate Amino Transferase 15 U/L (0-32); Blood Urea Nitrogen 10 mg/dL (8-23); Calcium 9.2 mg/dL (8.5-10.5); Carbon Dioxide 25 mmol/L (22-29); Chloride 101 mmol/L (98-107); Creatinine Clr Calc Pharmacy 82.1094; Globulin 3.5 g/dL (1.3-4.6); Glomerular Filtration Rate 83.7 mL/min (90-130); Glucose 102 mg/dL (65-115); Osmolality Calculated 283 mOsm/kg (285-295); Potassium 3.6 mmol/L (3.5-5.1); Sodium 137 mmol/L (136-145); Total Bilirubin 0.3 mg/dL (0.15-1.2)
--- NOTE | 2024-08-15 08:01 | PM.DCS ---
Discharge Providers Date of Admission: 08/12/24 09:55 Date of Discharge: August 15, 2024 Attending Provider at Admission: Hayden Kraus Attending Provider at Discharge: Hayden Kraus Primary Care Provider: NARGIS Almaguer Diagnoses at Discharge Discharge Diagnosis (1) Fracture of femoral neck, left: Status: Acute (2) GI bleeding: Status: Acute (3) Hypertensive urgency: Status: Acute (4) Hyponatremia: Status: Acute Reason for Visit Reason for Visit: Fall, Hip Pain, Poss GI Bleed Brief History: Shelly Mcdonald is a 68 year old female with a history of COPD, prior lung cancer, chronic back pain, and left leg orthopedic hardware (pins and screws in the left ankle) presents with recurrent falls since moving to their current residence in August or September of last year (approximately one year ago). The patient reports up to 11 falls, often attributing them to tripping, possibly due to not lifting their feet enough and the left leg being shorter and weaker. The patient denies lightheadedness or presyncopal symptoms before falls. About a month ago, the patient sustained significant right-sided rib bruising from a fall, which remains sore. The patient also reports chronic back pain, which has worsened recently. There is a history of left leg weakness and attempts to use insoles for leg length discrepancy. The patient manages their own medications and has recently stopped meloxicam due to lack of efficacy and prior GI issues. The patient has a history of diarrhea a few months ago, leading to medication adjustments. The patient denies numbness or loss of sensation in the hands or feet but notes sometimes feeling dehydrated upon waking. The patient does not have diabetes. The patient lives alone with two dogs, has no family nearby, and ambulates independently at home, though owns but does not use a cane. The patient smokes half a pack per day, drinks beer occasionally (three to six cans about once a week or less), and reports past marijuana use. There is a family history of heart problems (father, mother, and brother). The patient is currently hospitalized after a recent fall resulting in a hip fracture, with ongoing pain. There is concern for GI bleeding (vomiting with blood detected), and the patient is awaiting endoscopy prior to planned hip surgery. The patient is alert and making their own decisions, with cousin Aaron Granda listed as a potential surrogate decision-maker if needed [phone]. The patient is open to CPR and resuscitation if required. Hospital Course Hospital Course She was hospitalized and pain management initiated. Blood counts were repeated, and she underwent EGD due to positive Gastroccult on vomiting preadmission. She was noted to have mild anemia likely related to fracture, did not have any melena or hematochezia. EGD was performed and was unremarkable. She underwent uneventful ORIF left hip without any significant perioperative anemia. Doing well postoperatively she was assessed by physical therapy and is returning home with home health. She was counseled on fall prevention, as well as obtaining medic alert button due to living by herself. She states she will be keeping her dogs outside the house to reduce chance of additional fall. She is encouraged to use assistive device which she had not been using in the past. A walker is ordered for her. Her hyponatremia possibly contributing to her falls has resolved. She is asked not to limit sodium in her diet. Please follow-up sodium level. With history of COPD she was also found to require 2 L of oxygen on exertion, again possibly contributing to her falls. Oxygen is requested for her at discharge. Please reassess COPD and oxygenation. Physical Exam Narrative: Sitting up in bed. Const: COMMON NORMALS: patient oriented x3 and alert GENERAL APPEARANCE: cooperative ORIENTATION/CONSCIOUSNESS: Yes awake HENMT: COMMON NORMALS: oropharynx normal Neck/C-Spine: COMMON NORMALS: no JVD Resp: COMMON NORMALS: normal respiratory effort and clear to auscultation bilaterally AUSCULTATION: clear to auscultation bilaterally Cardio: COMMON NORMALS: no JVD, regular rhythm, S1 normal heart sound present, S2 normal heart sound present and No murmurs present (Cardio) RHYTHM: regular rhythm HEART SOUNDS: S1 normal heart sound present and S2 normal heart sound present GI: COMMON NORMALS: Normal to inspection, nondistended, normoactive bowel sounds present, Soft to palpation and non-tender PALPATION: Yes Soft to palpation Extremity: COMMON NORMALS: no joint enlargement and no pedal edema NARRATIVE EXTREMITY EXAM: Postoperative dressing left hip Neuro: COMMON NORMALS: patient oriented x3 and moves all extremities SENSORIUM/ORIENTATION: Yes alert Skin: COMMON NORMALS: no rashes or lesions noted GENERAL SKIN EXAM: no rashes or lesions noted Urinary Catheter Management: Huertas: Cath Placed During This Visit: yes, but has since been removed by the nurse Reason for Continuing Indwelling Catheter: Decision to DC Catheter Urinary Catheter Date of Insertion: 08/12/24 Urinary Catheter Time of Insertion: 10:00 Date Urinary Catheter Removed: 08/15/24 Time Urinary Catheter Discontinued: 06:46 Discharge Data Studies Completed and Pending Completed Studies During Hospitalization Category Date Time Status CT head wo con* [id number] Stat Cat Scan 08/12/24 09:32 Completed XR chest 1V portable [id number] Stat Exams 08/12/24 08:50 Completed XR femur LT min 2V* [id number] Stat Exams 08/12/24 09:25 Completed XR hip LT 2-3V wo/w pel* [id number] Routine Exams 08/14/24 08:48 Completed XR hip LT 2-3V wo/w pel* [id number] Stat Exams 08/12/24 08:49 Completed XR knee LT 3V* [id number] Stat Exams 08/12/24 09:25 Completed Pending at discharge Category Date Time Status Basic Metabolic Panel AM LABS Lab 08/16/24 04:00 Ordered Basic Metabolic Panel AM LABS Lab 08/17/24 04:00 Ordered Basic Metabolic Panel Routine Lab 08/14/24 06:09 Uncollected Complete Blood Count w/Auto AM LABS Lab 08/16/24 04:00 Ordered Complete Blood Count w/Auto AM LABS Lab 08/17/24 04:00 Ordered Complete Blood Count w/Auto Routine Lab 08/14/24 06:09 Uncollected Type and Screen Routine Lab 08/14/24 06:09 Uncollected Pathology: Surgical [PTH] Routine Pth 08/13/24 07:50 Received Radiology Impressions Chest X-Ray 08/12/24 08:50 IMPRESSION: No acute intrathoracic findings. Femur X-Ray 08/12/24 09:25 IMPRESSION: Displaced and angulated left femoral neck fracture. Knee X-Ray 08/12/24 09:25 IMPRESSION: No acute fracture or dislocation. Head CT 08/12/24 09:32 IMPRESSION: 1. No acute intracranial hemorrhage or edema. 2. Moderate bifrontal lobe atrophy and small vessel disease throughout the white matter. More than expected for a patient of this age. Hip/Pelvis X-Ray 08/14/24 08:48 Impression: Left hip arthroplasty. Laboratory Results WBC 9.38 10^3/uL (3.29-11.43) 08/15/24 06:41 RBC 4.12 10^6/uL (3.85-5.65) 08/15/24 06:41 Hgb 13.30 g/dL (11.27-16.99) 08/15/24 06:41 Hct 41.0 % (36-47) 08/15/24 06:41 MCV 99.5 fl (85-98) H 08/15/24 06:41 MCH 32.3 pg (27-33) 08/15/24 06:41 MCHC 32.4 g/dL (30-55) 08/15/24 06:41 RDW 12.4 % (12.1-15.1) 08/15/24 06:41 Plt Count 288 10^3/cmm (157-399) 08/15/24 06:41 MPV 8.8 fL (7.4-10.4) 08/15/24 06:41 Neut % (Auto) 79.0 % 08/15/24 06:41 Lymph % (Auto) 12.4 % 08/15/24 06:41 Porter % (Auto) 7.5 % 08/15/24 06:41 Eos % (Auto) 0.5 % 08/15/24 06:41 Baso % (Auto) 0.1 % 08/15/24 06:41 Neut # (Auto) 7.41 10^3/uL (1.8-7.7) 08/15/24 06:41 Lymph # (Auto) 1.2 10^3/uL (0.8-4.8) 08/15/24 06:41 Porter # (Auto) 0.7 10^3/uL (0.2-0.9) 08/15/24 06:41 Eos # (Auto) 0.1 10^3/uL (0.0-0.8) 08/15/24 06:41 Baso # (Auto) 0.0 10^3/uL (0.0-0.1) 08/15/24 06:41 Nucleated RBC % (auto) 0 % 08/15/24 06:41 Nucleated RBCs # 0.0 /100WBC 08/15/24 06:41 Sodium 137 mmol/L (136-145) 08/15/24 06:41 Potassium 3.6 mmol/L (3.5-5.1) 08/15/24 06:41 Chloride 101 mmol/L (98-107) 08/15/24 06:41 Carbon Dioxide 25 mmol/L (22-29) 08/15/24 06:41 Anion Gap 14.6 (5-19) 08/15/24 06:41 BUN 10 mg/dL (8-23) 08/15/24 06:41 Creatinine 0.7 mg/dL (0.5-0.9) 08/15/24 06:41 GFR Calculation 83.7 mL/min (90-130) L 08/15/24 06:41 Glucose 102 mg/dL (65-115) 08/15/24 06:41 Calculated Osmolality 283 mOsm/kg (285-295) L 08/15/24 06:41 Calcium 9.2 mg/dL (8.5-10.5) 08/15/24 06:41 Total Bilirubin 0.3 mg/dL (0.15-1.2) 08/15/24 06:41 AST 15 U/L (0-32) 08/15/24 06:41 ALT 13 U/L (0-33) 08/15/24 06:41 Alkaline Phosphatase 97 U/L (35-105) 08/15/24 06:41 Troponin T Baseline < 6 ng/L (0-10) 08/12/24 10:38 Troponin T 120 Minute < 6.0 ng/L (0-10) 08/12/24 12:08 Delta Troponin T 0 ABS# (0-10) 08/12/24 12:08 Troponin T Hi Sens 6Hr 7.85 ng/L (0-10) 08/12/24 16:11 Troponin T Hi Sens 6Hr Delta 1.72937 ng/L (0-12) 08/12/24 16:11 Total Protein 7.0 g/dL (6.6-8.7) 08/15/24 06:41 Albumin 3.5 g/dL (3.5-5.2) 08/15/24 06:41 Globulin 3.5 g/dL (1.3-4.6) 08/15/24 06:41 Urine Color Yellow (Yellow) 08/12/24 09:55 Urine Appearance Clear (CLEAR) 08/12/24 09:55 Urine pH 6.0 (5-7) 08/12/24 09:55 Ur Specific Forest 1.012 (1.005-1.030) 08/12/24 09:55 Urine Protein Negative (Negative) 08/12/24 09:55 Urine Glucose (UA) Negative (Normal) 08/12/24 09:55 Urine Ketones Trace (Negative) 08/12/24 09:55 Urine Blood Trace (Negative) A 08/12/24 09:55 Urine Nitrate Negative (Negative) 08/12/24 09:55 Urine Bilirubin Negative (Negative) 08/12/24 09:55 Urine Urobilinogen 0.2 mg/dL (Negative) 08/12/24 09:55 Ur Leukocyte Esterase Negative (Negative) 08/12/24 09:55 Urine RBC 3-5 /hpf (0-2) 08/12/24 09:55 Urine WBC 0-5 /hpf (0-5) 08/12/24 09:55 Ur Squamous Epith Cells 0-5 /hpf (0-5) 08/12/24 09:55 Amorphous Sediment Not Reportable 08/12/24 09:55 Urine Bacteria Trace /hpf (NONE) 08/12/24 09:55 Hyaline Casts 2.46 /lpf 08/12/24 09:55 Gastric Occult Blood Positive (Negative) H 08/12/24 08:50 Blood Type A Positive 08/12/24 10:38 Rho(D) Type Rh positive 08/12/24 10:38 Antibody Screen Negative 08/12/24 10:38 Vitals Last Vital Signs Temp 98.7 F 08/15/24 07:22 Pulse 79 08/15/24 07:22 Resp 17 08/15/24 07:22 BP 154/75 08/15/24 07:22 Pulse Ox 99 08/15/24 07:22 O2 Del Method Nasal Cannula 08/15/24 07:22 O2 Flow Rate 4 08/15/24 04:00 Discharge Plan Discharge Patient Disposition: Home Health Service Condition: Stable Prescriptions: New Eliquis 2.5 mg tablet 2.5 mg PO BID 21 Days Qty: 42 0RF polyethylene glycol 3350 [Miralax] 17 gram powder in packet 17 g PO DAILY PRN (Reason: constipation) Qty: 30 0RF hydrocodone-acetaminophen 5-300 mg tablet 1 tab PO Q8H PRN (Reason: pain) Qty: 10 0RF Continued calcium carbonate 600 mg calcium (1,500 mg) tablet 600 mg PO DAILY turmeric root extract 500 mg capsule 1,000 mg PO DAILY multivitamin [Daily Multi-Vitamin] Tablet 1 tab PO DAILY bupropion HCl 150 mg tablet extended release 24 hr 150 mg PO QAM losartan 50 mg tablet 50 mg PO DAILY citalopram 20 mg tablet 20 mg PO DAILY albuterol sulfate 90 mcg/actuation HFA aerosol inhaler See Rx Instructions .ROUTE .COMPLEX Rx Instructions: INHALE 2 PUFFS BY MOUTH EVERY 6 HOURS NEEDED FOR SHORTNESS OF BREATH cyclobenzaprine 5 mg tablet 5 mg PO BEDTIME PRN (Reason: Muscle Spasm) No Action hydrocodone-acetaminophen 5-325 mg tablet 1 tab PO Q6H PRN (Reason: pain) 5 Days Qty: 20 0RF Discharge Orders: Discharge Order (Routine); Ordered 08/15/24 Ordered By: Hayden Kraus Other Ambulatory Orders: DME: Oxygen (Order) Location: None Selected Ordered By: Hayden Kraus DME: Walker (Order) Location: None Selected Ordered By: Hayden Kraus Referrals: [facility] ([facility]) [Outside] Aron Hong MD [Physician, General Surgery] - 09/02/24 9:00 am Jory Romano FNP [Primary Care Provider, Family Practice] Referral Note: We have notified your physician's clinic of the need for a follow-up appointment to be scheduled. If you have not heard from them within the next 2 business days, please call them directly. Doni Campos DO [Physician, Orthopedics] - 08/29/24 11:00 am Discharge Diet: Cardiac Discharge Activity: Limit activity as instructed, Use walker/crutches as instructed and Oxygen as instructed Patient Instructions: Hydrocodone/Acetaminophen (By mouth), Polyethylene Glycol 3350 (By mouth) (Miralax, Healthylax..., Apixaban (By mouth) (Eliquis), Acute Wound Care (DC), Fall Prevention (GEN), GI Post Discharge Instructions w/ Anesthesia, Opioid Safety, Post Anesthesia Care Activity Restrictions/Additional Instructions: Orthopedic discharge instructions: Patient may weight-bear as tolerated to the operative lower extremity Posterior hip precautions (avoid excess excessive hip flexion past 90 degrees and internal rotation) Take DVT prophylaxis (blood thinner) as prescribed ) Take pain medication as prescribed Take antinausea medication as needed Supplement with Citracal vitamin D for bone health and healing Ice as needed for pain and swelling Leave Silverlon bandage dressing on for 7 days after that may remove, rinse incision with warm soapy water/shower pat dry keep clean dry and intact and redress with a clean dry dressing. No baths or soap May supplement for pain with Tylenol [id number] as needed(1000 mg every 8 hours-do not exceed more than 3000mg in 24-hour period) Follow-up in the orthopedic office in 2 weeks from date of surgery Contact the office for any questions or concerns per (fevers, increased drainage or redness around the incision site etc.) Follow up with your primary doctor regarding left leg being shorter and consider obtaining custom shoes. Follow-up with your primary doctor for reassessment of COPD. Continue your inhaler at home, use nebulizer as needed. Avoid falls at all cost. As discussed consider medic alert button to help you call for help in case of a fall. IV primary doctor follow-up your sodium as well, your sodium was low on presentation. Do not limit sodium in your diet. Monitor blood pressures 3 times daily, write down values to bring to your appointment. Target blood pressure 120/80 long-term. Discharge Attestations Time Spent in Discharge Care*: greater than 30 min Quality Metrics Clinical Quality Measures [ No reported AMI, CVA or VTE this stay] Coding Level of Care Code Acute Code for Chg Fwd Diagnoses Fracture of femoral neck, left S72.002A GI bleeding K92.2 Hypertensive urgency I16.0 Hyponatremia E87.1
--- NOTE | 2024-08-15 08:05 | PC.NURSE ---
This nurse informed SHANNAN Vargas in to let her know pt would need a ride home.
[2024-08-15] MEDS: nicotine 21 mg Patch 1 PATCH TRANSDERMA (08:11)
[2024-08-15] MEDS: enoxaparin 30 mg/0.3 mL Syringe SUBCUT (08:11)
[2024-08-15] MEDS: multivitamin therapeutic Tablet 1 TAB PO (08:12)
[2024-08-15] MEDS: losartan 50 mg Tablet 25 MG PO (08:12)
[2024-08-15] MEDS: calcium carb-vit d 600mg/400unit 1 Tablet 1 EACH PO (08:12)
[2024-08-15] MEDS: guaiFENesin 600 mg Tablet 1200 MG PO (08:12)
[2024-08-15] MEDS: iron polysaccharide complex 150 mg Capsule PO (08:12)
[2024-08-15] MEDS: sennosides-docusate Tablet 2 TAB PO (08:12)
[2024-08-15] MEDS: ketorolac 30 mg/mL INJ 15 MG IVP (08:13)
[2024-08-15] MEDS: chlorhexidine gluconate 0.12% Btl 473 mL 30 ML MUCOUS MEM ×2 (08:21→12:48)
[2024-08-15] MEDS: mupirocin oint 22 gm 1 APPLIC NASAL (08:22)
[2024-08-15] MEDS: budesonide 0.5 mg/2 mL Neb INHALATION (09:07)
--- NOTE | 2024-08-15 09:17 | PC.NURSE ---
Addendum entered by Melba Quinn LPN 08/15/24 10:06: Pt also awaiting delivery of Home O2 and a walker. Original Note: Pt does not have family that lives here. She only has her neighbor to pick her up, but she cannot get here until 1500. Pt does not have medicaid for a ride to be set up and does not feel comfortable going by [place] as her walker is at home and she has dogs that will jump up on her. Hydrocodone out of stock at [facility]. Remedios Coleman. Dr. Carlisle office called for him to send Moran script to [facility] pharmacy. This nurse also called [facility] pharmacy to have eliquis and miralax transferred to them as well.
--- NOTE | 2024-08-15 10:54 | PC.NURSE ---
awaiting delivery of walker and home oxygen prior to d/c.
--- NOTE | 2024-08-15 12:22 | PC.SOCIAL ---
IMM Updated Updated pt on IMM. No questions voiced. Provided pt a copy. Initialed, dated, & timed a copy & placed in chart.
--- NOTE | 2024-08-15 13:14 | P.PN_ITS ---
Subjective 2 Subjective: Patient seen and examined today she is already gotten up and progressed well with therapy pain is controlled medication she is ready for discharge today. Patient understands her posterior hip precautions. Vitals/I&O/Wt Last Vital Signs Temp 98.3 F 08/15/24 11:32 Pulse 84 08/15/24 11:32 Resp 16 08/15/24 11:32 BP 174/81 08/15/24 11:32 Pulse Ox 92 08/15/24 11:32 O2 Del Method Nasal Cannula 08/15/24 11:32 O2 Flow Rate 2 08/15/24 09:12 08/14/24 08/15/24 08/15/24 22:59 06:59 14:59 Intake Total 1263.333 / 2589.333 370 / 2959.333 1316.667 / 1316.667 Output Total 800 / 1275 Balance 1263.333 / 2114.333 -430 / 3720.033 3658.667 / 1316.667 Weight last 48 hrs Weight 195 lb 8 oz Weight 195 lb Physical Exam 2 Narrative: Examination left hip: Examination left hip dressings on in place clean dry and intact. Patient sitting upright in chair today. She is able to wiggle her toes plantarflex and dorsiflex ankle compartments are soft compressible distal pulses palpable. Sensation intact light touch distally. Normal postoperative swelling and tenderness palpation around incision site left hip. Urinary Catheter Management: Huertas: Cath Placed During This Visit: yes, but has since been removed by the nurse Reason for Continuing Indwelling Catheter: Decision to DC Catheter Urinary Catheter Date of Insertion: 08/12/24 Urinary Catheter Time of Insertion: 10:00 Date Urinary Catheter Removed: 08/15/24 Time Urinary Catheter Discontinued: 06:46 Data 08/15/24 06:41 08/15/24 06:41 Xray Ortho: Radiologist's impression: Ordering Provider/Ordering MD: Doni Campos Date of Service: 08/14/24 Procedure(s): XR hip LT 2-3V wo/w pel* [id number] Accession Number(s): [id number] Report Number: [id number] WS: [id number] Left hip, 2 views, AP pelvis, 08/14/2024 Clinical Data: post op left hip rachel Comparison: Left thigh and femur, 08/12/2024 Findings: A left femoral head arthroplasty has been performed. The acetabular cup is in good position. The proximal intramedullary nghia is in good position. There are surgical tony in the lateral left subcutaneous tissue. The right hip is normal. There is a uterine fibroid in the right side of the true pelvis. XR/XR hip LT 2-3V wo/w pel* [id number] Impression: Left hip arthroplasty. A&P Assessment and plan (1) Status post hemiarthroplasty of left hip: Plan Weightbearing as tolerated left lower extremity Posterior hip precautions Ice as needed for pain and swelling Pain control DVT prophylaxis Resume diet Complete postoperative antibiotics Postoperative x-rays reviewed?stable left hip hemiarthroplasty Internal medicine on board as primary Stable for discharge from orthopedic standpoint Patient plan on discharge today. Follow-up with orthopedics in 2 weeks upon discharge she is already been up and mobilizing and pain is improved from preop. Patient ready for discharge today will discharge on DVT prophylaxis postoperative pain medication appropriate discharge structures in patient's chart will follow-up in orthopedics in 2 weeks all questions answered. PDMP PDMP Reviewed: Not Reviewed Attestations 2 Medical Necessity Statement*: Ongoing care status post left hip hemiarthroplasty Coding Level of Care Code Acute Code for Chg Fwd Diagnoses Status post hemiarthroplasty of left hip Z96.642 Time Spent (min) 20
--- NOTE | 2024-08-15 16:34 | PC.NURSE ---
Delay in delivery of home O2 and walker. Pt is non compliant with O2 and wants O2 delivered to her home as well as walker.
== END 2024-08-15 16:34 | disposition home health service (06) | DRG 522 ==
LOC: ER 09:28 → ICU 09:55 → MEDSURG 08-13 09:37
PROVIDERS: Student in an Organized Health Care Education/Training Program; Surgery; Admitting Provider Internal Medicine; Emergency Provider Family Medicine; PCP Nurse Practitioner Family; Visit Provider Internal Medicine
PROC: 0DJ08ZZ Inspection of Upper Intestinal Tract, Via Natural or Artificial Opening Endoscopic (ICD-10-PCS; principal; 2024-08-13 07:15)
PROC: 0SRS0JA Replacement of Left Hip Joint, Femoral Surface with Synthetic Substitute, Uncemented, Open Approach (ICD-10-PCS; principal; 2024-08-14 07:00)
DX: S72.002A Fracture of unspecified part of neck of left femur, initial encounter for closed fracture (principal); K92.0 Hematemesis; E87.1 Hypo-osmolality and hyponatremia; J44.1 Chronic obstructive pulmonary disease with (acute) exacerbation; W01.0XXA Fall on same level from slipping, tripping and stumbling without subsequent striking against object, initial encounter; I16.0 Hypertensive urgency; Z85.118 Personal history of other malignant neoplasm of bronchus and lung; G89.29 Other chronic pain; M54.9 Dorsalgia, unspecified; R29.6 Repeated falls; F17.210 Nicotine dependence, cigarettes, uncomplicated; D64.9 Anemia, unspecified; I10 Essential (primary) hypertension; H43.393 Other vitreous opacities, bilateral; F41.9 Anxiety disorder, unspecified; F32.A Depression, unspecified; G62.9 Polyneuropathy, unspecified; M19.90 Unspecified osteoarthritis, unspecified site; Z79.891 Long term (current) use of opiate analgesic; Z82.49 Family history of ischemic heart disease and other diseases of the circulatory system
CPT/HCPCS: 36415; 43239; 51702; 70450; 71045; 73502; 73552; 73562; 80053; 81001; 82271; 84295; 84484; 85018; 85025; 86850; 86900; 88305; 88342; 93005; 94640; 94760; 96372; 96374; 96375; 97110; 97116; 97161; 97165; 97530; 99285; C1713; C1776; J0131; J0690; J1100; J1171; J1650; J1885; J2250; J2270; J2405; J2470; J2704; J3010; J3370; J3490; J7030; J7626; J9999

== ENCOUNTER → 2024-09-02 15:30 | Outpatient (BNVA) | payer MEDICARE, SELFPAY | PROVIDERS: PCP Nurse Practitioner Family; Visit Provider Physician Assistant | DX: Z96.642 Presence of left artificial hip joint (principal) | CPT/HCPCS: 73502; 99024 ==

== ENCOUNTER → 2024-10-14 15:54 | Outpatient (BNVA) | payer MEDICARE, SELFPAY | PROVIDERS: PCP Nurse Practitioner Family; Visit Provider Student in an Organized Health Care Education/Training Program | DX: Z98.890 Other specified postprocedural states (principal); Z96.642 Presence of left artificial hip joint | CPT/HCPCS: 73502; 99024 ==

== ENCOUNTER → 2024-12-31 10:34 | Outpatient (BNVA) | payer MEDICARE, SELFPAY | PROVIDERS: PCP Nurse Practitioner Family; Visit Provider Physician Assistant | DX: M17.12 Unilateral primary osteoarthritis, left knee (principal); M17.11 Unilateral primary osteoarthritis, right knee; Z47.89 Encounter for other orthopedic aftercare; Z96.642 Presence of left artificial hip joint | CPT/HCPCS: 73502; 73560; 73565 ==

== ENCOUNTER 2024-12-31 12:00 | Outpatient (CLI) | payer MEDICARE, SELFPAY | END 2024-12-31 12:01 | disposition home or self-care (01) | LOC: SPT 12:01 | PROVIDERS: PCP Nurse Practitioner Family; Visit Provider Physician Assistant | DX: Z46.89 Encounter for fitting and adjustment of other specified devices (principal); M17.12 Unilateral primary osteoarthritis, left knee | CPT/HCPCS: 20610; J3301; J9999; L1851 ==